=== PATIENT | male | born 1970 | race Caucasian/White ===

== ENCOUNTER 2021-03-15 16:47 | Inpatient (IN) | payer OTHER, SELFPAY ==
[2021-03-15] VITALS (51 sets, daily range): BP systolic 105–141; BP diastolic 57–76; PULSE 67–97; RESP 17–34; TEMP 36.9–37.9; O2SAT 78–100; BMI 34.5; BMI 32.1
--- NOTE | 2021-03-15 17:09 | XRR_ITS ---
PROCEDURE INFORMATION: Exam: XR Chest Exam date and time: 03/15/2021 5:09 PM Age: 50 years old Clinical indication: Cough and shortness of breath; Additional info: Covid pna TECHNIQUE: Imaging protocol: XR of the chest. Views: 1 view. COMPARISON: No relevant prior studies available. FINDINGS: Lungs: Peripheral ill-defined consolidations noted within the mid and lower lungs. Pleural spaces: Unremarkable. No pleural effusion. No pneumothorax. Heart/Mediastinum: Top-normal heart size. Bones/joints: Unremarkable. XR/XR chest 1V portable [id number] IMPRESSION: Peripheral ill-defined consolidations noted within the mid and lower lungs. Radiation Dose CTDIVOL = (mGy): DLP = (mGy-cm)
--- NOTE | 2021-03-15 17:12 | ED_ITS ---
HPI - General Adult General: Chief complaint: COVID symptoms Stated complaint: LOW 02 (60'S, 70'S), FEVER Time Seen by Provider: 03/15/21 17:09 History of Present Illness: HPI narrative: CC: Shortness of breath, fever and generalized weakness HPI: This is a [50] yo patient w/ no PMH BIBA for moderate respiratory distress at home x 5days. CoVID+ 4 days ago progressively worsening symptoms. Denies chest pain, N/V, diaphoresis, exertional shortness of breath, GI or other complaints. Denies any recent surgery/immobilization/travel, or hematemesis or hx of VTE in the past. En route, rescue placed on 15L satting at 78%. Onset: 4 days ago Duration: ongoing for the last 4 days Location: home Severity: moderate/severe Review of Systems Narrative: Constitutional: +subjective fever, +generalized weakness HEENT: No vision changes CV: No chest pain, no palpitations PULM: +cough, +dyspnea. GI: No abdominal pain, no N/V/D. : No dysuria MSKEL: No muscle pain SKIN: No new rashes, no lesions. NEURO: No headache, no focal weakness. HEME: No visible bruises PSYCH: Normal mood PFSH ED PFSH: Medical History (Updated 03/15/21 @ 18:10 by Jim Mckeon MD) HTN (hypertension) Surgical History (Updated 03/16/21 @ 14:05 by Jim Mckeon MD) No significant past surgical history Family History (Updated 03/16/21 @ 14:05 by Jim Mckeon MD) Other CAD (coronary artery disease) Denies family history of Cancer Social History (Updated 03/16/21 @ 14:06 by Jim Mckeon MD) Smoking and tobacco status: former smoker Alcohol intake: never Substance/Drug Use: never Caregiver/support person: Yes Lives independently: Yes Household members: family Housing: House Current occupational status: employed Current gender identity: Male Physical Exam Narrative: EXAM NARRATIVE: Head: Atraumatic Eyes: PERRL, conjunctiva without injection ENT: Dry membrane moist NECK: Supple without lymphadenopathy LUNGS: +Coarse lung sounds, +rhonchi and crackles throughout the lung qureshi CV: RRR ABDOMEN: Soft, nontender in all quadrants, no guarding or rebound tenderness EXTREMITY: Normal ROM SKIN: No rash or erythema NEURO: Awake and alert. No focal motor deficits. PSYCH: Normal mood and affect. Course Vital Signs: Vital signs: Vital Signs Temperature 98.5 F 03/16/21 18:30 Pulse Rate 73 03/17/21 09:00 Respiratory Rate 19 H 03/17/21 09:00 Blood Pressure 126/84 03/17/21 09:00 Pulse Oximetry 87 L 03/17/21 09:00 MDM - General Adult MDM Narrative: Medical decision making narrative: [50]yo patient w/ hx covid dx 4 days prior BIBA for respiratory distress. On arrival patient is satting at 78% with increased work of breathing, coarse breath sounds in lungs. Speaking full sentence. Currently full code. Based on history, exam and findings, presentation most consistent with moderate/severe covid PNA requiring increasing oxygen support. No suspicion for PNA, ACS, tamponade, CHF, aortic dissection. EKG: No signs of STEMI and no evidence of Brugada?s sign, delta wave, epsilon wave, significantly prolonged QTc, or malignant arrhythmia as source of exacerbation. Workup today: ECG, CBC, BMP, Troponin, BNP, CXR, COVID labs, ABG, lactic acid, blood culture Intervention: Tylenol 1gram, PO challenge, serial reassessment, oxygen, remdesivir, decadron [5:20pm] On reassessment, the patient continues to be in moderate respiratory distress. HDS, AAOx3 and mentating without issues. The patient is now more comfortable on high flow compared to prior without any signs of increasing fatigue. At this point, a decision was made to admit patient for close observati on. Patient agrees with plan. Disposition: Admission for serial observation Lab Data: Labs: Lab Results 03/15/21 03/15/21 03/15/21 17:18 17:18 17:18 WBC 12.6 10^3/uL H 10 ^3/uL (4.0-10.0) RBC 3.80 10^6/uL L 10 ^6/uL (4.1-5.3) Hgb 11.5 g/dL L g/dL (11.7-16.6) Hct 33.2 % L % (42.0-52.0) MCV 87.4 fl fl (80-94) MCH 30.3 pg pg (28.0-34.0) MCHC 34.6 g/dL g/dL (30.0-36.0) RDW 12.3 % % (12.1-15.1) Plt Count 342 10^3/cmm 10^3 /cmm (130-400) MPV 8.9 fL fL (7.4-10.4) Neut % (Auto) 91.6 % % Lymph % (Auto) 4.5 % % [place] % (Auto) 2.9 % % Eos % (Auto) 0.0 % % Baso % (Auto) 0.2 % % Neut # (Auto) 11.52 10^3/uL H 1 0^3/uL (1.8-7.7) Lymph # (Auto) 0.6 10^3/uL L 10^ 3/uL (0.8-4.8) [place] # (Auto) 0.4 10^3/uL 10^3/ uL (0.2-0.9) Eos # (Auto) 0.0 10^3/uL 10^3/ uL (0.0-0.8) Baso # (Auto) 0.0 10^3/uL 10^3/ uL (0.0-0.1) Nucleated RBC % (a uto) 0 % % Nucleated RBCs # 0.0 /100WBC /100W BC PT 16.20 SECONDS H S ECONDS (12.1-14.9) INR 1.26 H (0.8-1.2) APTT 43.4 SECONDS H SE CONDS (23.9-36.7) Fibrinogen 849 mg/dL H mg/dL (174-498) D-Dimer 1.62 ug/mIFEU H u g/mIFEU (0-0.59) Specimen Type Sample Site ABG pH ABG pCO2 ABG pO2 ABG HCO3 ABG Base Excess Rico Test Hematocrit O2 Delivery Device O2 Liters/Min FiO2 [employer] ID Sodium 134 mmol/L L mmol /L (136-145) Potassium 3.4 mmol/L L mmol /L (3.5-5.1) Chloride 96 mmol/L L mmol/ L (98-107) Carbon Dioxide 22 mmol/L mmol/L (22-29) Anion Gap 19.4 H (5-19) BUN 13 mg/dL mg/dL (6-20) Creatinine 0.9 mg/dL mg/dL (0.7-1.2) GFR Calculation 90.1 mL/min mL/mi n (90-130) Glucose 141 mg/dL H mg/dL (65-115) Calculated Osmolal ity 280 mOsm/kg L mOs m/kg (285-295) Lactic Acid Calcium 8.3 mg/dL L mg/dL (8.5-10.5) Magnesium 2.0 mg/dL mg/dL (1.7-2.3) Ferritin 1499 ng/mL H ng/m L (30-400) Total Bilirubin 0.8 mg/dL mg/dL (0.15-1.2) AST 45 U/L H U/L (0-40) ALT 32 U/L U/L (0-41) Alkaline Phosphata se 105 IU/L IU/L (40-130) Lactate Dehydrogen ase 683 U/L H U/L (135-225) C-Reactive Protein 345.4 mg/L H mg/L (0.0-4.9) NT-Pro-B Natriuret Pep 538 pg/mL H pg/mL (0-125) Total Protein 6.6 g/dL g/dL (6.6-8.7) Albumin 3.8 g/dL g/dL (3.5-5.2) Globulin 2.8 g/dL g/dL (1.3-4.6) Procalcitonin 0.56 ng/mL H ng/m L (0-0.5) 03/15/21 03/15/21 17:18 17:26 WBC RBC Hgb Hct MCV MCH MCHC RDW Plt Count MPV Neut % (Auto) Lymph % (Auto) [place] % (Auto) Eos % (Auto) Baso % (Auto) Neut # (Auto) Lymph # (Auto) [place] # (Auto) Eos # (Auto) Baso # (Auto) Nucleated RBC % (a uto) Nucleated RBCs # PT INR APTT Fibrinogen D-Dimer Specimen Type Arterial Sample Site Radial, left ABG pH 7.51 H (7.35-7.45) ABG pCO2 27.9 mmHg L mmHg (35-45) ABG pO2 51.7 mmHg L mmHg (80.0-100.0) ABG HCO3 22.3 mmol/L mmol/ L (22-26) ABG Base Excess 0.1 mmol/L mmol/L (-2.0-2.0) Rico Test Pos Hematocrit 33.7 % L % (42-52) O2 Delivery Device Hag O2 Liters/Min 35.0 % % FiO2 60.0 % % [employer] ID Cak Sodium Potassium Chloride Carbon Dioxide Anion Gap BUN Creatinine GFR Calculation Glucose Calculated Osmolal ity Lactic Acid 1.4 mmol/L mmol/L (0.5-2.2) Calcium Magnesium Ferritin Total Bilirubin AST ALT Alkaline Phosphata se Lactate Dehydrogen ase C-Reactive Protein NT-Pro-B Natriuret Pep Total Protein Albumin Globulin Procalcitonin Imaging Data^: Other Imaging: Radiologist's impression: [address], [place] [address]FSre ReportSigned Patient: Jamal Díaz #: [id number]: [id number]#:[id number]/Sex: 50 / MADM Date: 03/15/21Loc: ERRoom/Bed:Attending Dr: Ordering Provider/Ordering MD: Navneet Palmer MD Date of Service: 03/15/21 Procedure(s): XR chest 1V portable [id number] Accession Number(s): [id number] Report Number: [id number] PROCEDURE INFORMATION: Exam: XR Chest Exam date and time: 03/15/2021 5:09 PM Age: 50 years old Clinical indication: Cough and shortness of breath; Additional info: Covid pna TECHNIQUE: Imaging protocol: XR of the chest. Views: 1 view. COMPARISON: No relevant prior studies available. FINDINGS: Lungs: Peripheral ill-defined consolidations noted within the mid and lower lungs. Pleural spaces: Unremarkable. No pleural effusion. No pneumothorax. Heart/Mediastinum: Top-normal heart size. Bones/joints: Unremarkable. XR/XR chest 1V portable [id number] IMPRESSION: Peripheral ill-defined consolidations noted within the mid and lower lungs. Radiation Dose CTDIVOL = (mGy): DLP = (mGy-cm) Dictated By:James Myers DOSigned By:James Myers DOSigned Date/Time:03/15/21 1805DD/ 1709 Discharge Plan Discharge Patient Disposition: Admitted As Inpatient Admit Provider: Jim Mckeon Clinical Impression: Pneumonia due to 2019-nCoV, Hypoxemia Condition: Stable Coding Level of Care Code ED Mass Communications Instructor for [facility]
[2021-03-15 17:27] LABS: Basophils % 0.2 %; Hematocrit 33.2 % (42.0-52.0); Hemoglobin 11.5 g/dL (11.7-16.6); Lymphocytes # 0.6 10^3/uL (0.8-4.8); Lymphocytes % 4.5 %; Mean Corpuscular HGB Conc 34.6 g/dL (30.0-36.0); Mean Corpuscular Hemoglobin 30.3 pg (28.0-34.0); Mean Corpuscular Volume 87.4 fl (80-94); Mean Platelet Volume 8.9 fL (7.4-10.4); Monocytes # 0.4 10^3/uL (0.2-0.9); Monocytes % 2.9 %; Neutrophils # 11.52 10^3/uL (1.8-7.7); Neutrophils % 91.6 %; Nucleated Red Blood Cells % 0 %; Platelet Count 342 10^3/cmm (130-400); Red Cell Distribution Width 12.3 % (12.1-15.1); White Blood Count 12.6 10^3/uL (4.0-10.0)
[2021-03-15] MEDS: acetaminophen 500 mg Tablet 1000 MG PO (17:29)
[2021-03-15] MEDS: dexamethasone 4 mg/mL INJ 6 MG IVP (17:29)
[2021-03-15] MEDS: sodium chloride 0.9% 1,000 ML 999 ML IV (17:29)
--- NOTE | 2021-03-15 17:31 | PC.PHAR ---
pt states he takes care of his own medications-pt states he took his last dose of the z pac today
[2021-03-15 17:37] LABS: ABG PCO2 27.9 mmHg (35-45); ABG PH Result 7.51 (7.35-7.45); Arterial Blood Gas Hematocrit 33.7 % (42-52); Base Excess ABG 0.1 mmol/L (-2.0-2.0); Blood Gas Allen Test Pos; Blood Gas Operator Identificat CAK; Blood Gas Sample Site Radial, left; Blood Gas Sample Type Arterial; HCO3 ABG 22.3 mmol/L (22-26); Oxygen Device HAG; PO2 ABG 51.7 mmHg (80.0-100.0)
[2021-03-15 17:41] LABS: INR 1.26 (0.8-1.2)
[2021-03-15 17:42] LABS: Lactic Sepsis W/Reflex 1.4 mmol/L (0.5-2.2); Partial Thromboplastin Time 43.4 SECONDS (23.9-36.7)
[2021-03-15 17:47] LABS: D Dimer 1.62 ug/mIFEU (0-0.59); Fibrinogen 849 mg/dL (174-498)
--- NOTE | 2021-03-15 18:01 | P.HP_ITS ---
Providers/Chief Complaint Chief Complaint: LOW 02 (60'S, 70'S), FEVER History of Present Illness Jamal Díaz is a 50 year old male with past medical history of hypertension, and vaccinated for COVID-19, tested positive for COVID-19 on March 11 at outpatient clinic presented to the ER today with worsening shortness of breath over last 1 week more so since March 13. In the ER he was found to have saturation down to high 70s requiring high oxygen supplementation. Blood work in the ER concerning for white count 12.6, hemoglobin of 11.5, D- dimer 1.6, ABG showing a pH of 7.5, PCO2 of 28, PO2 of 51 on 60% high, sodium 134, potassium of 3.4, creatinine of 0.9, ferritin of 1499, CRP of 345 with chest x-ray as below. Review of Systems General: Reports: 10 or more systems reviewed and unremarkable except in HPI and below Const: Denies: fever(s), chills, body aches, change in appetite, change in weight, malaise, night sweats, diaphoresis, change in sleep pattern, daytime sleepiness or snoring Eyes: Denies: change in vision, blurry vision, photophobia, eye discomfort or eye discharge ENMT: Denies: throat pain, enlarged tonsils, hoarseness, mouth pain, oral sores, dry mouth, tinnitus, nasal congestion or post nasal drip Card: Denies: chest pain, palpitations, irregular heart rhythm, edema, swelling of feet/ankles, lightheadedness, syncope, pre-syncope, dyspnea on exertion, orthopnea, leg pain with exertion or acrocyanosis Resp: Denies: dyspnea, productive cough, non-productive cough, wheezing, stridor, pain on inspiration, change in phlegm color, hemoptysis or chest congestion GI: Denies: abdominal pain, nausea, vomiting, hematemesis, coffee ground emesis, dysphagia, heartburn, diarrhea, constipation, bloating, GI cramping, change in bowel habits, pain on defecation, hematochezia or melena : Denies: flank pain, difficulty urinating, dysuria, urinary frequency, urinary urgency, urinary hesitancy, urinary dribbling, difficulty starting urination, change in urine stream, nocturia or hematuria Musc: Denies: neck pain, back pain, extremity pain, joint pain, joint swelling, joint redness, joint stiffness or limited range of motion Neuro: Denies: headache(s), numbness in extremities, weakness in extremities, sensory changes, lack of coordination, difficulty walking, frequent falls, dizziness, vertigo, confusion, Slurred speech present, difficulty communicating thoughts or seizure-like activity Psych: Denies: anxiety, depression, mood swings, panic attacks, hopelessness or irritability Endo: Denies: polyuria, polydipsia, tired all the time, cold intolerance, excessive sweating, flushing or heat intolerance Gregg/Lymph: Denies: easy bruising or easy bleeding All/Imm: Denies: tongue swelling, facial swelling or acute wheezing Medications/Allergies Home Medications Medication Instructions Recorded Confirmed Last Taken Type amlodipine 5 mg PO QAM 03/15/21 03/15/21 03/15/21 History azithromycin See Rx Instructions .ROUTE .COMPLEX 03/15/21 03/15/21 03/15/21 Hist ory LAST DOSE TAKEN TODA diphenhydramine-acetaminophen 2 tab PO BEDTIME PRN 03/15/21 03/15/21 03/14/21 History [Tylenol PM Extra Strength] hydroxyzine HCl 50 mg PO BID PRN 03/15/21 03/15/21 Unknown History ibuprofen 400 - 600 mg PO Q6H PRN 03/15/21 03/15/21 03/15/21 12:00 History Allergies Allergy/AdvReac Type Severity Reaction Status Date / Time Penicillins Allergy Intermediate ALGY-Anaphy Verified 03/15/21 17:30 laxis PFSH Acute PFSH: Medical History (Updated 03/15/21 @ 18:10 by Jim Mckeon MD) HTN (hypertension) Surgical History (Updated 03/16/21 @ 14:05 by Jim Mckeon MD) No significant past surgical history Family History (Updated 03/16/21 @ 14:05 by Jim Mckeon MD) Other CAD (coronary artery disease) Denies family history of Cancer Social History (Updated 03/16/21 @ 14:06 by Jim Mckeon MD) Smoking and tobacco status: former smoker Alcohol intake: never Substance/Drug Use: never Caregiver/support person: Yes Lives independently: Yes Household members: family Housing: House Current occupational status: employed Current gender identity: Male Vitals/I&O/Wt Last Vital Signs Temp 100.0 F H 03/15/21 17:44 Pulse 96 03/15/21 17:44 Resp 28 H 03/15/21 17:44 BP 123/71 03/15/21 17:44 Pulse Ox 90 03/15/21 17:44 Weight last 48 hrs Weight 109.316 kg Physical Exam Narrative: EXAM NARRATIVE: General: No acute distress, AO x3 HEENT: PERRLA, pupils bilaterally equal and reactive Chest: Normal vesicular breath sounds, no added sounds, equal good air entry bilaterally CVS: S1-S2 regular, no murmurs, no tachycardia, no gallops, no rubs Abdomen: Soft, nontender, no organomegaly, bowel sounds present Neuro: No focal deficits, no facial deformity, AO x3, power 5/5 in all limbs Data : 03/16/21 04:20 03/16/21 04:20 A&P Assessment and plan (1) ARDS (adult respiratory distress syndrome): Status: Acute (2) Pneumonia due to 2019-nCoV: Status: Acute (3) HTN (hypertension): Status: Acute Additional A&P Information Hypoxia secondary to COVID-19 pneumonia: Severe disease. Oxygen supplementation keeping saturation over 88%. Dexamethasone 6 mg daily. Remdesivir to finish a 5-day course. Vitamin C, zinc. Advair, Spiriva. Pulmonary toilet with incentive spirometry flutter valve. Point to semiprone when possible. We will monitor inflammatory markers including ferritin, ESR, CRP, D-dimer, fibrinogen. If getting elevated will dose Actemra though high suspicion of bacterial infection for now. Patient was made aware of the same and he has given verbal consent. D-dimer elevated. Check CTA. For now we will start patient on full dose anticoagulation given history of CVA, patient requiring high oxygen supplementation. Will monitor for anemia or blood loss. Check sputum culture, procalcitonin, urine Legionella, bacterial antigen, blood culture. As patient is requiring high oxygen supplementation for now start on broad-spectrum antibiotics with vancomycin and imipenem. Will de-escalate as per culture results. Given hypoxia will try to keep patient as negative as possible. Patient clinically dehydrated for now. Check echocardiogram. Strict input output charting, daily weights. Admit to ICU. Mechanical soft diet. Protonix OPD prophylaxis. Full dose Lovenox to help with DVT prophylaxis as well. Attestations Medical Necessity Statement*: More than 2 midnights for management of ARDS secondary COVID-19 pneumonia Critical Care Time: The high probability of a clinically significant, sudden or life threatening deterioration of the patient's [pulmonary] system(s) required my full and direct attention, intervention and personal management. The critical care time is as shown. This time is in addition to time spent performing any reported procedures but includes the following: [x] Data and vital sign review and interpretation [x] Patient assessment, examination and intervention [x] Documentation [x] Medication orders and management Coding Level of Care Code Acute Auto Transmission Technician for [facility] Fwd Diagnoses ARDS (adult respiratory distress syndrome) J80 Pneumonia due to 2019-nCoV U07.1; J12.82 HTN (hypertension) I10
[2021-03-15 18:23] LABS: Alanine Aminotransferase 32 U/L (0-41); Albumin Level 3.8 g/dL (3.5-5.2); Alkaline Phosphatase 105 IU/L (40-130); Anion Gap 19.4 (5-19); Aspartate Amino Transferase 45 U/L (0-40); Blood Urea Nitrogen 13 mg/dL (6-20); C Reactive Protein 345.4 mg/L (0.0-4.9); Calcium 8.3 mg/dL (8.5-10.5); Carbon Dioxide 22 mmol/L (22-29); Chloride 96 mmol/L (98-107); Globulin 2.8 g/dL (1.3-4.6); Glomerular Filtration Rate 90.1 mL/min (90-130); Glucose 141 mg/dL (65-115); Lactate Dehydrogenase 683 U/L (135-225); Osmolality Calculated 280 mOsm/kg (285-295); Potassium 3.4 mmol/L (3.5-5.1); Sodium 134 mmol/L (136-145); Total Bilirubin 0.8 mg/dL (0.15-1.2); Total Protein 6.6 g/dL (6.6-8.7)
--- NOTE | 2021-03-15 18:25 | CTR_ITS ---
PROCEDURE INFORMATION: Exam: CTA Chest With Contrast Exam date and time: 03/15/2021 6:25 PM Age: 50 years old Clinical indication: Shortness of breath; Patient HX: Covid +; Additional info: Eval pe TECHNIQUE: Imaging protocol: Computed tomographic angiography of the chest with contrast. 3D rendering (Not supervised by radiologist): MIP and/or 3D reconstructed images were created by the technologist. Radiation optimization: All CT scans at this facility use at least one of these dose optimization techniques: automated exposure control; mA and/or kV adjustment per patient size (includes targeted exams where dose is matched to clinical indication); or iterative reconstruction. Contrast material: OMNI 350; Contrast volume: 82 ml; Contrast route: INTRAVENOUS (IV); COMPARISON: CR (CHEST, ) 03/15/2021 5:28 PM RADIATION DOSE METRICS: Total DLP (mGy-cm): 615.51 FINDINGS: Pulmonary arteries: Normal. No pulmonary emboli. Aorta: Unremarkable. No aortic aneurysm. No aortic dissection. Lungs: Patulous ground-glass opacities noted throughout both lungs. No masses. Pleural spaces: Unremarkable. No pneumothorax. No pleural effusion. Heart: Unremarkable. No cardiomegaly. No pericardial effusion. Lymph nodes: Unremarkable. No enlarged lymph nodes. Bones/joints: Unremarkable. No acute fracture. Soft tissues: Unremarkable. CT/CT angio chest PE protcl [id number] IMPRESSION: 1. Negative for pulmonary embolism. 2. Patulous ground-glass opacities noted throughout both lungs consistent with COVID pneumonia. Radiation Dose CTDIVOL = (mGy): DLP = 615.51 (mGy-cm)
[2021-03-15 18:37] LABS: Ferritin 1499 ng/mL (30-400)
[2021-03-15 18:39] LABS: NT Pro B Type Natriuretic Pept 538 pg/mL (0-125); Procalcitonin 0.56 ng/mL (0-0.5)
[2021-03-15] MEDS: iohexol 350 mg/mL 100 mL Btl IV (18:45)
[2021-03-15] MEDS: remdesivir 200 MG in sodium chloride 0.9% (100 ml) 60 ML 100 MG IV (19:13)
[2021-03-15] MEDS: famotidine 20 mg/2 mL INJ IVP (19:15)
[2021-03-15 19:43] LABS: Troponin T (5th) Once 16 ng/L (0-15)
[2021-03-15 20:07] LABS: Add Urine Microscopic? YES; Bilirubin Urine Neg (Negative); Blood Urine 3+ (Negative); Glucose Urine UA Norm (Normal); Ketones Urine Negative (Negative); Leukocyte Esterase Urine Negative (Negative); Nitrate Urine Negative (Negative); Protein Urine 3+ (Negative); Urine Appearance Clear (CLEAR); Urine Color Yellow (Yellow); Urobilinogen Urine Norm (Negative); pH Urine 5 (5-7)
[2021-03-15 20:08] LABS: Add Urine Culture? No; Amorphous Sediment Urine 1+ /hpf; Bacteria Urine TRACE /hpf; Squamous Epithelial Cell Urine 0-4 /hpf (0-5); WBC Urine 0-4 /hpf (0-5)
[2021-03-15 20:23] LABS: SARS Covid-2 Antigen Negative (Negative)
[2021-03-15 20:49] LABS: Iron 14 ug/dL (59-158); Percent Saturation 8.5 % (20-50); Thyroid Stimulating Hormone 0.86 uIU/mL (0.27-4.20); Total Iron Binding Capacity 164 mcg/dl; Unsaturated Iron Binding 150 ug/dL (112-347)
[2021-03-15 21:20] LABS: Influenza A by IFA Negative (Negative); Influenza B by IFA Negative (Negative)
[2021-03-15] MEDS: ascorbic acid 500 mg Tablet 1000 MG PO (21:23)
[2021-03-15] MEDS: vancomycin 1,500 MG/300 ML PIGGYBACK 200 MG IV (21:23)
[2021-03-15] MEDS: benzonatate 100 mg Capsule PO (21:23)
[2021-03-15] MEDS: enoxaparin 120 mg/0.8 mL Syringe 110 MG SUBCUT (21:23)
[2021-03-15] MEDS: ipratropium-albuterol 3 mL Neb INHALATION (23:31)
[2021-03-16] VITALS (93 sets, daily range): BP systolic 110–147; BP diastolic 54–92; PULSE 74–98; RESP 15–45; TEMP 36.9; O2SAT 81–99
[2021-03-16] MEDS: ipratropium-albuterol 3 mL Neb INHALATION ×6 (03:15→23:59)
[2021-03-16 03:29] LABS: ABG PCO2 30.7 mmHg (35-45); ABG PH Result 7.46 (7.35-7.45); Arterial Blood Gas Hematocrit 37.2 % (42-52); Base Excess ABG -1.5 mmol/L (-2.0-2.0); Blood Gas Allen Test Pos; Blood Gas Sample Site Radial, left; Blood Gas Sample Type Arterial; HCO3 ABG 21.6 mmol/L (22-26); Oxygen Device NC; PO2 ABG 55.6 mmHg (80.0-100.0)
[2021-03-16] MEDS: vancomycin 1,500 MG/300 ML PIGGYBACK 200 MG IV ×3 (04:37→19:54)
[2021-03-16 04:43] LABS: Basophils % 0.1 %; Hemoglobin 11.1 g/dL (11.7-16.6); Lymphocytes # 0.4 10^3/uL (0.8-4.8); Lymphocytes % 3.3 %; Mean Corpuscular HGB Conc 33.6 g/dL (30.0-36.0); Mean Corpuscular Hemoglobin 29.8 pg (28.0-34.0); Mean Corpuscular Volume 88.5 fl (80-94); Monocytes # 0.4 10^3/uL (0.2-0.9); Neutrophils # 11.18 10^3/uL (1.8-7.7); Neutrophils % 92.6 %; Nucleated Red Blood Cells % 0 %; Platelet Count 370 10^3/cmm (130-400); Red Blood Count 3.73 10^6/uL (4.1-5.3); Red Cell Distribution Width 12.6 % (12.1-15.1); White Blood Count 12.1 10^3/uL (4.0-10.0)
[2021-03-16 05:12] LABS: D Dimer 1.73 ug/mIFEU (0-0.59)
[2021-03-16 05:25] LABS: Estmated Average Glucose 131; Hemoglobin A1C 6.2 % (4.0-6.0)
[2021-03-16 05:27] LABS: Chol HDL Ratio 3.43 mg/dL (1.0-5.00); Cholesterol 120 mg/dL (0-200); HDL Cholesterol 35 mg/dL (60-100); LDL Cholesterol Calculated 61 mg/dL (50-129); NT Pro B Type Natriuretic Pept 710 pg/mL (0-125); Triglycerides 118 mg/dL (0-150); VLDL Cholestrol Calculation 24 mg/dL (0-30)
[2021-03-16 05:31] LABS: Creatine Phosphokinase 325 U/L (39-308)
[2021-03-16 05:39] LABS: C Reactive Protein 339.3 mg/L (0.0-4.9)
[2021-03-16] MEDS: famotidine 20 mg/2 mL INJ IVP ×2 (05:39→18:14)
[2021-03-16 05:51] LABS: Alanine Aminotransferase 34 U/L (0-41); Albumin Level 3.4 g/dL (3.5-5.2); Alkaline Phosphatase 103 IU/L (40-130); Anion Gap 19.4 (5-19); Aspartate Amino Transferase 43 U/L (0-40); Blood Urea Nitrogen 14 mg/dL (6-20); Calcium 8.7 mg/dL (8.5-10.5); Carbon Dioxide 21 mmol/L (22-29); Chloride 101 mmol/L (98-107); Globulin 3.8 g/dL (1.3-4.6); Glomerular Filtration Rate 90.1 mL/min (90-130); Glucose 206 mg/dL (65-115); Osmolality Calculated 292 mOsm/kg (285-295); Potassium 3.4 mmol/L (3.5-5.1); Sodium 138 mmol/L (136-145); Total Bilirubin 0.5 mg/dL (0.15-1.2); Total Protein 7.2 g/dL (6.6-8.7)
[2021-03-16 05:54] LABS: Ferritin 1612 ng/mL (30-400)
--- NOTE | 2021-03-16 06:00 | XRR_ITS ---
PROCEDURE INFORMATION: Exam: XR Chest Exam date and time: 03/16/2021 6:00 AM Age: 50 years old Clinical indication: Dyspnea; Additional info: Covid TECHNIQUE: Imaging protocol: XR of the chest. Views: 1 view. COMPARISON: CR (CHEST, ) 03/15/2021 5:28 PM FINDINGS: Lungs: Moderate hazy opacities throughout both lungs. Since the prior study, these have become more diffuse but are overall decreased. Appearance is consistent with viral pneumonia. Pulmonary edema could be contributing. Pleural spaces: No visible pneumothorax or pleural effusion. Heart/Mediastinum: Heart size within normal limits. Bones/joints: No emergent findings identified. XR/XR chest 1V portable [id number] IMPRESSION: 1. Moderate hazy opacities throughout both lungs. Since the prior study, these have become more diffuse but are overall decreased. Appearance is consistent with viral pneumonia. Pulmonary edema could be contributing. Radiation Dose CTDIVOL = (mGy): DLP = (mGy-cm)
[2021-03-16] MEDS: potassium chloride ER 20 mEq Tablet 40 MEQ PO (08:07)
[2021-03-16] MEDS: FUROsemide 10 mg/mL SDV 4mL 40 MG IVP (08:07)
[2021-03-16] MEDS: ferrous gluconate 324 mg Tablet PO ×2 (08:07→18:14)
[2021-03-16] MEDS: zinc gluconate 50 mg Tablet PO (08:07)
[2021-03-16] MEDS: ascorbic acid 500 mg Tablet 1000 MG PO (08:07)
[2021-03-16] MEDS: benzonatate 100 mg Capsule PO ×3 (08:07→20:27)
[2021-03-16] MEDS: budesonide 0.5 mg/2 mL Neb INHALATION ×2 (08:14→20:30)
[2021-03-16] MEDS: apixaban 5 mg Tablet PO ×2 (09:40→20:28)
[2021-03-16] MEDS: ALPRAZolam 0.5 mg Tablet PO ×2 (10:24→20:27)
[2021-03-16 11:17] LABS: Glucose Point of Care 180 mg/dL (70-110)
[2021-03-16] MEDS: insulin lispro 100 unit/1 mL SUBCUT ×3 (11:42→20:28)
--- NOTE | 2021-03-16 14:07 | P.PN_ITS ---
Subjective Subjective: Interval history: Overnight patient required 50 L 100 % oxygen supplementation to maintain saturation at 90. Today morning decreased to 35 L 90% to make patient more comfortable and saturation improved to 91. On examination patient looking more comfortable though still tachypneic. Denies any nausea vomiting, headache. States he is feeling tired and has not slept in over a week. Denies chest pain. Has remained hemodynamically stable and afebrile. We discussed in detail for need to do proning to semiprone him when possible along with I-S and Acapella every 2 hours. Patient verbalized understanding and is motivated to the same. Vitals/I&O/Wt Last Vital Signs Temp 98.4 F 03/15/21 23:45 Pulse 75 03/16/21 13:00 Resp 26 H 03/16/21 13:00 BP 130/62 03/16/21 13:00 Pulse Ox 95 03/16/21 13:00 03/15/21 03/16/21 03/16/21 22:59 06:59 14:59 Intake Total 500 / 500 700 / 700 Output Total 1675 / 1675 1425 / 1425 Balance -1175 / -1175 -725 / -725 Weight last 48 hrs Weight 101.605 kg Weight 109.316 kg Physical Exam Narrative: EXAM NARRATIVE: General: No acute distress, AO x3 HEENT: PERRLA, pupils bilaterally equal and reactive Chest: Bilateral extensive bronchial breath sounds, coarse crackles present all over the lung qureshi, equal good air entry bilaterally CVS: S1-S2 regular, no murmurs, no tachycardia, no gallops, no rubs Abdomen: Soft, nontender, no organomegaly, bowel sounds present Neuro: No focal deficits, no facial deformity, AO x3, power 5/5 in all limbs Data : 03/16/21 04:20 03/16/21 04:20 Micro: Microbiology 03/15/21 19:51 Legionella Urinary Antigen - Final Urethra 03/15/21 19:51 Bacterial Antigens - Final Urine Kidney 03/15/21 20:43 Blood Culture - Preliminary Blood SPECIMEN COLLECTED 03/15/21 17:18 Blood Culture - Preliminary Blood SPECIMEN COLLECTED A&P Assessment and plan (1) ARDS (adult respiratory distress syndrome): Status: Acute (2) Pneumonia due to 2019-nCoV: Status: Acute (3) HTN (hypertension): Status: Acute Additional A&P Information ARDS secondary to COVID-19 pneumonia: Severe disease. Oxygen supplementation keeping saturation over 88%. PF ratio 55 Dexamethasone 6 mg daily. Remdesivir to finish a 5-day course. Vitamin C, zinc. DuoNebs every 4 hour, budesonide twice daily Pulmonary toilet with incentive spirometry flutter valve. Proning to semiprone when possible. We will monitor inflammatory markers including ferritin, ESR, CRP, D-dimer, fibrinogen. If getting elevated will dose Actemra though high suspicion of bact erial infection for now. Patient was made aware of the same and he has given verbal consent. D-dimer elevated. CTA negative for pulmonary embolism. Switch from full dose Lovenox to Eliquis 5 mg twice daily given high oxygen supplementation. Most likely patient will need anticoagulation for 14 days on discharge. Will monitor for anemia or blood loss. Blood cultures so far negative, urine Legionella, bacterial antigen negative. Pro-Leon elevated. Sputum culture awaited. For now continue with vancomycin and imipenem. Will de-escalate as per culture results. Given hypoxia will try to keep patient as negative as possible. Check echocardiogram. Results awaited. Give IV Lasix 40 mg once. Replace potassium. Strict input output charting, daily weights. Hypertension: Goal of excellent less than 140/90 mmHg. Blood pressure stable for now. Hold off antihypertensives. Type 2 diabetes mellitus: New diagnosis. HbA1c 6.2. Start insulin sliding scale at low-dose protocol as patient will be on steroids as well. Will uptitrate insulin as per daily requirements. Admit to ICU. Mechanical soft carb consistent diet. Protonix OPD prophylaxis. Full dose Lovenox to help with DVT prophylaxis as well. Attestations Medical Necessity Statement*: For management of ARDS secondary COVID-19 pneumonia Critical Care Time: The high probability of a clinically significant, sudden or life threatening deterioration of the patient's [pulmonary] system(s) required my full and direct attention, intervention and personal management. The critical care time is as shown. This time is in addition to time spent performin g any reported procedures but includes the following: [x] Data and vital sign review and interpretation [x] Patient assessment, examination and intervention [x] Documentation [x] Medication orders and management Coding Level of Care Code Acute [employer] Weaver Cloth for [facility]dard Diagnoses ARDS (adult respiratory distress syndrome) J80 Pneumonia due to 2019-nCoV U07.1; J12.82 HTN (hypertension) I10
[2021-03-16 14:17] LABS: Coronavirus Test Green County Detected
--- NOTE | 2021-03-16 18:04 | USCV_ITS ---
Jamal Díaz Age: 50 Gender: M : 1970 Exam Date: 03/16/2021 06:47 Ordering Phys: Jim Mckeon MD Technologist: Exam Location: [facility] [place] Indication: COVID BP: 131 / 71 HR: 75 Rhythm: Sinus Technical Quality: Adequate MEASUREMENTS (Male / Female) Normal Values 2D ECHO LVOT Diameter 2.1 cm LV Ejection Fraction MOD 2C 49.1 % LV Ejection Fraction 2C AL 48.9 % LA Diameter 3.7 cm LA Width 4.0 cm LA Height 4.9 cm RA Width 4.3 cm RA Height 5.2 cm Aorta at Sinotubular Diameter 3.2 cm M-MODE LV Diastolic Diameter MM 5.6 cm 4.2 - 5.9 / 3.9 - 5.3 cm LV Systolic Diameter MM 4.4 cm LV Ejection Fraction MM Teich 43.5 % IVS Diastolic Thickness MM 1.2 cm 0.6 - 1.0 / 0.6 - 0.9 cm IVS Systolic Thickness MM 1.5 cm LVPW Diastolic Thickness MM 1.2 cm 0.6 - 1.0 / 0.6 - 0.9 cm LVPW Systolic Thickness MM 2.3 cm RV Diastolic Diameter MM 1.7 cm Aortic Annulus Diameter 4.0 cm LA Ao Ratio MM 1.0 MV E Point Septal Separation 2.6 cm DOPPLER AV Peak Velocity 141.0 cm/s LVOT Peak Velocity 121.0 cm/s AV Area Cont Eq vti 2.9 cm squared AV Area Cont Eq pk 2.9 cm squared MV Area PHT 5.0 cm squared Mitral E to A Ratio 1.4 MV E' Velocity 62.0 cm/s Mitral E to MV E' Ratio 9.3 Mitral E to LV E' Lateral Ratio 7.8 Mitral E to LV E' Septal Ratio 11.4 TR Peak Velocity 263.0 cm/s TR Peak Gradient 27.7 mmHg Right Atrial Pressure 4.0 mmHg Pulmonary Artery Systolic Pressu 31.7 mmHg FINDINGS Left Ventricle Normal left ventricular cavity size. Normal left ventricular systolic function. No regional wall motion abnormalities. Left ventricular ejection fraction is estimated at 55%. Normal diastolic function. Right Ventricle The right ventricle is normal in size and function. Right Atrium The right atrium is normal in size. Left Atrium The left atrium is normal in size. Mitral Valve Moderately thickened mitral valve. No mitral valve stenosis. Mild-moderate mitral valve regurgitation. Aortic Valve Aortic valve sclerosis without stenosis or regurgitation. Tricuspid Valve Mild tricuspid valve regurgitation. Pulmonic Valve Structurally normal pulmonic valve without significant stenosis. There is no pulmonic regurgitation. Pericardium Normal pericardium without effusion. Aorta Normal ascending aorta dimension. CONCLUSIONS 1-Normal left ventricular cavity size. Normal left ventricular systolic function. No regional wall motion abnormalities. Left ventricular ejection fraction is estimated at 55%. Normal diastolic function. 2-Moderately thickened mitral valve. No mitral valve stenosis. Mild-moderate mitral valve regurgitation. 3-There is no pericardial effusion. 4-Pulmonary artery systolic pressure is within normal limits. 5-Right atrial pressure is around 5 mm of mercury. 6-There are no prior echocardiogram studies to compare. Kerwin Taveras MD (Electronically Signed) Final Date: 16 March 2021 19:45 S
[2021-03-16 18:07] LABS: Glucose Point of Care 204 mg/dL (70-110)
[2021-03-16] MEDS: ascorbic acid 500 mg Tablet PO (18:14)
[2021-03-16] MEDS: dexamethasone 4 mg/mL INJ 6 MG IVP (18:14)
[2021-03-16] MEDS: remdesivir 100 MG in sodium chloride 0.9% (100 ml) 100 ML IV (18:15)
[2021-03-16] MEDS: morphine 4 mg/mL SDV 1 mL 2 MG IVP ×3 (19:10→23:52)
[2021-03-16 20:25] LABS: Glucose Point of Care 164 mg/dL (70-110)
[2021-03-16 21:16] LABS: Vancomycin Trough 11.3 ug/mL (10-15)
[2021-03-17] VITALS (39 sets, daily range): BP systolic 112–136; BP diastolic 58–90; PULSE 58–103; RESP 12–46; TEMP 36.7; O2SAT 83–99
[2021-03-17] MEDS: dexmedeTOMIDine 0.9 % NaCL 400 MCG/100 ML PREMIX 5.08 MCG IV (00:03)
[2021-03-17] MEDS: ondansetron 2 mg/ML SDV 2 mL 4 MG IVP (01:23)
[2021-03-17] MEDS: morphine 4 mg/mL SDV 1 mL 2 MG IVP ×2 (01:33→04:35)
[2021-03-17] MEDS: haloperidol inj 5 mg/mL INJ 1 mL 1 MG IV ×2 (01:34→01:41)
[2021-03-17] MEDS: LORazepam 2 mg/mL INJ 1 mL IVP (01:34)
--- NOTE | 2021-03-17 01:49 | PC.NURSE ---
Pt has been progressively declining in respiratory status. Dr Parker has been notified and multiple changes have been made via medicine (see MAR) and through RT measures. Pt is currently refusing bipap and is on HFNC. Pt was informed of his current code status being FULL CODE and what that entailed. Pt stated multiple times that he DID NOT want to be intubated. He DOES NOT want to be on a ventilator or have a breathing tube in his throat. Pt is alert and oriented X4. Dr Parker notified of pt's wish to be DNI. stated that pt is too young to be DNI, so we will wait to change code status until the time comes. Pt next of kinand only emergency contact is his brother, whom he lives with, and whom is currently in the ER for worsening covid symptoms, so he is unable to be contacted about the issue.
--- NOTE | 2021-03-17 02:16 | PC.NURSE ---
PRECEDEX DOSING Per Dr. Parker, pt is to be on 1 mcg/kg unless it causes bradycardia.
[2021-03-17 02:21] LABS: ABG PCO2 37.2 mmHg (35-45); ABG PH Result 7.38 (7.35-7.45); Alveolar-Arterial Oxygen Gradi 63.7 mmHg (5-10); Arterial Blood Gas Hematocrit 49.3 % (42-52); Base Excess ABG -2.5 mmol/L (-2.0-2.0); Blood Gas Allen Test Pos; Blood Gas Operator Identificat JB; Blood Gas Sample Site Radial, right; Blood Gas Sample Type Arterial; Carboxyhemoglobin 0.6 %THgb (0.4-20.1); HCO3 ABG 22.1 mmol/L (22-26); HGB O2 Sat 93.6 % (95-100); Ionized Calcium Level - ABG 1.2 mmol/L (1.1-1.4); Methemoglobin 0.1 % (0.4-1.5); Oxygen Device HAG; Oxygen Saturation ABG 94.2; PO2 ABG 70.6 mmHg (80.0-100.0); Potassium Level - ABG 3.5 mmol/L (3.5-5.0); Total Hemoglobin 16.1 g/dL (14-18)
--- NOTE | 2021-03-17 03:00 | XR_ITS ---
WS: [id number] Portable AP upright chest, 03/17/2021 Clinical Data: worsening breathing Comparison: Portable chest, 03/16/2021 Findings: The patchy bilateral pulmonary opacities have increased slightly compared to yesterday. The heart size is enlarged. Monitor leads are on the chest wall. XR/XR chest 1V portable [id number] Impression: Slight increase in bilateral pulmonary opacities.
[2021-03-17] MEDS: ipratropium-albuterol 3 mL Neb INHALATION ×5 (03:29→20:45)
[2021-03-17] MEDS: vancomycin 1,500 MG/300 ML PIGGYBACK 200 MG IV ×2 (03:56→13:24)
[2021-03-17] MEDS: dexmedeTOMIDine 0.9 % NaCL 400 MCG/100 ML PREMIX 25.4 MCG IV (04:40)
[2021-03-17 05:20] LABS: Basophils % 0.2 %; Hematocrit 31.7 % (42.0-52.0); Hemoglobin 10.7 g/dL (11.7-16.6); Lymphocytes # 0.6 10^3/uL (0.8-4.8); Lymphocytes % 3.9 %; Mean Corpuscular HGB Conc 33.8 g/dL (30.0-36.0); Mean Corpuscular Hemoglobin 30.3 pg (28.0-34.0); Mean Corpuscular Volume 89.8 fl (80-94); Mean Platelet Volume 9.3 fL (7.4-10.4); Monocytes # 0.6 10^3/uL (0.2-0.9); Monocytes % 3.9 %; Neutrophils # 12.66 10^3/uL (1.8-7.7); Nucleated Red Blood Cells % 0 %; Platelet Count 446 10^3/cmm (130-400); Red Blood Count 3.53 10^6/uL (4.1-5.3); Red Cell Distribution Width 13.1 % (12.1-15.1); White Blood Count 14.2 10^3/uL (4.0-10.0)
[2021-03-17 05:40] LABS: Alanine Aminotransferase 67 U/L (0-41); Albumin Level 3.3 g/dL (3.5-5.2); Alkaline Phosphatase 157 IU/L (40-130); Aspartate Amino Transferase 80 U/L (0-40); Chloride 105 mmol/L (98-107); Globulin 3.7 g/dL (1.3-4.6); Glucose 183 mg/dL (65-115); Potassium 4.2 mmol/L (3.5-5.1); Sodium 141 mmol/L (136-145)
[2021-03-17 05:44] LABS: D Dimer 1.86 ug/mIFEU (0-0.59)
[2021-03-17 06:00] LABS: C Reactive Protein 244.6 mg/L (0.0-4.9); Creatine Phosphokinase 272 U/L (39-308); NT Pro B Type Natriuretic Pept 397 pg/mL (0-125)
[2021-03-17 06:26] LABS: Ferritin 2752 ng/mL (30-400)
[2021-03-17 06:37] LABS: Anion Gap 23.2 (5-19); Blood Urea Nitrogen 17 mg/dL (6-20); Carbon Dioxide 17 mmol/L (22-29); Osmolality Calculated 298 mOsm/kg (285-295)
[2021-03-17 06:38] LABS: Calcium 8.4 mg/dL (8.5-10.5); Total Bilirubin 0.3 mg/dL (0.15-1.2)
[2021-03-17 07:02] LABS: Glomerular Filtration Rate 143.8 mL/min (90-130)
[2021-03-17] MEDS: FUROsemide 10 mg/mL SDV 4mL 40 MG IVP ×2 (07:44→16:19)
[2021-03-17] MEDS: famotidine 20 mg/2 mL INJ IVP ×2 (07:45→17:43)
[2021-03-17] MEDS: ferrous gluconate 324 mg Tablet PO (07:45)
[2021-03-17 08:00] LABS: Glucose Point of Care 167 mg/dL (70-110)
[2021-03-17 08:05] LABS: Procalcitonin 0.51 ng/mL (0-0.5)
[2021-03-17] MEDS: budesonide 0.5 mg/2 mL Neb INHALATION ×2 (08:33→20:45)
[2021-03-17] MEDS: fluoxetine 20 mg Capsule 40 MG PO (09:08)
[2021-03-17] MEDS: ascorbic acid 500 mg Tablet PO (09:08)
[2021-03-17] MEDS: insulin lispro 100 unit/1 mL SUBCUT ×2 (09:09→12:49)
[2021-03-17] MEDS: benzonatate 100 mg Capsule PO ×3 (09:09→21:08)
[2021-03-17] MEDS: zinc gluconate 50 mg Tablet PO (09:09)
[2021-03-17] MEDS: apixaban 5 mg Tablet PO (09:14)
--- NOTE | 2021-03-17 09:51 | PC.CHAP ---
Pastoral Care Encounter/Spiritual Assessment Type of Contact [] Declined document management specialist visit [] Patient/Family/Request visit [] Outpatient visit [] Follow-up visit [] Physician referral [] Code/Alert [x] Routine visit [] Staff referral [] Actively dying [x] Patient sleeping [] Family support [] [] Out of room [] Palliative care [] [] Receiving care in room [] Pre-surgical visit [] Trauma [] Long length of stay [x] ICU visit [x] Other: oxygen Relational/Emotional Strength [] Patient feels connected with others/family/visitors/staff [] Distress [] Loneliness/isolation [] Abandonment Spirituality of Patient [] Person of Jade [] Attends Faith of their Jade [] Believes in Prayer [] Reads Bible or Pentecostal materials [] There are Spiritual issues to be addressed Stunt Driver Interventions [x] Prayer [] Active listening [] Non-anxious presence [] Spiritual/emotional support [] Crisis/trauma care [] Spiritual counseling [] Bereavement support [] Provided bereavement packet [] Provided Bible/devotional materials [] Provided toy/stuffed animal, coloring book to patient or family member [] Provided Communion [] Anointing/[place] [] Salvation [x] Completed spiritual assessment [] Other: Impact on Illness or Injury [] Angry [] Fearful [] Anxious [] Often cries [] Exhaustion [] Unable to work [] Unable to attend latter-day [] Unable to walk/stand [] Unable to read [] Unable to drive [] Unable to eat/drink [] Unable to sleep [] Unable to be with family [] Patient intubated [] Other: Summary Time spent with patient
[2021-03-17] MEDS: tocilizumab 800 MG in sodium chloride 0.9% (100 ml) 100 ML 100 MG IV (10:25)
[2021-03-17 12:17] LABS: Glucose Point of Care 216 mg/dL (70-110)
--- NOTE | 2021-03-17 15:35 | PM.CONSULT ---
Providers/Reason For Consult Consulting Physician/Specialty*: Pulmonary critical care medicine Reason for Consult*: Severe COVID-19 Attending Physician: Jim Mckeon MD History of Present Illness History of Present Illness Jamal Díaz is a 50 year old male with a past medical history of hypertension. According to the chart the patient had been vaccinated. He tested positive for COVID-19 on March 11. He presented to the hospital on March 15 with worsening shortness of breath. In the emergency department the patient was found to be hypoxic in the 70s requiring high flow nasal cannula. CT angiogram of the chest did not reveal any pulmonary embolism. The patient had bilateral diffuse groundglass opacities primarily in the peripheral lung consistent with COVID-19. His inflammatory markers have been elevated. Procalcitonin level was borderline high at 0.51. Over the past 2 days, the patient has been treated with broad-spectrum antibiotic, remdesivir, dexamethasone. Currently he is on 80% FiO2 and saturating in the mid to high 80s to low 90s. The patient was seen and examined in the ICU. He complained of exertional shortness of breath but no significant cough, sputum production. The patient actually told me that he has been feeling better today than he did in the past couple of days. Chest x-ray today revealed more consolidative changes in bilateral lower lobes. Partial clearing of left upper lobe. All microbiologic studies have been negative so far including nasal MRSA PCR. Review of Systems Narrative: General: No fevers chills or night sweats Skin: No rash HEENT: Nasal congestion has resolved Neck: There is no neck swelling, mass or swollen glands. Respiratory: Please see my HPI. Cardiovascular: No chest pain, exertional shortness of breath Gastrointestinal: The patient had diarrhea Musculoskeletal: No joint pain or swelling Neurological: Patient is awake alert and oriented x3, no paralysis, gross motor function is normal. Psychiatric: History of depression Meds/Allergies Home Medications and Allergies Home Medications Medication Instructions Recorded Confirmed Last Taken Type amlodipine 5 mg PO QAM 03/15/21 03/15/21 03/15/21 History azithromycin See Rx Instructions .ROUTE .COMPLEX 03/15/21 03/15/21 03/15/21 History LAST DOSE TAKEN TODA diphenhydramine-acetaminophen 2 tab PO BEDTIME PRN 03/15/21 03/15/21 03/14/21 History [Tylenol PM Extra Strength] hydroxyzine HCl 50 mg PO BID PRN 03/15/21 03/15/21 Unknown History ibuprofen 400 - 600 mg PO Q6H PRN 03/15/21 03/15/21 03/15/21 12:00 History Allergies Allergy/AdvReac Type Severity Reaction Status Date / Time Penicillins Allergy Intermediate ALGY-Anaphy Verified 03/15/21 17:30 laxis Current Medications Current Medications Generic Name Dose Route Start Last Admin Trade Name Freq PRN Reason Stop Dose Admin Albuterol/Ipratropium 3 ml 03/16/21 00:00 03/17/21 15:22 Ipratropium-Albuterol 3 Ml Neb INHALATION 3 ml Q4H.RESPIRATORY MEENAKSHI Administration Alprazolam 0.5 mg 03/16/21 09:06 03/16/21 20:27 Alprazolam 0.5 Mg Tablet PO 0.5 mg TID PRN Administration ANXIETY Apixaban 5 mg 03/16/21 09:00 03/17/21 09:14 Apixaban 5 Mg Tablet PO 5 mg BID@0900,2100 MEENAKSHI Administration Ascorbic Acid 500 mg 03/16/21 18:00 03/17/21 09:08 Ascorbic Acid 500 Mg Tablet PO 500 mg BID MEENAKSHI Administration Benzonatate 100 mg 03/15/21 21:00 03/17/21 15:31 Benzonatate 100 Mg Capsule PO 100 mg TID MEENAKSHI Administration Budesonide 0.5 mg 03/16/21 09:00 03/17/21 08:33 Budesonide 0.5 Mg/2 Ml Neb INHALATION 0.5 mg BID.RESPIRATORY MEENAKSHI Administration Dexamethasone 6 mg 03/16/21 18:00 03/16/21 18:14 Dexamethasone 4 Mg/Ml Inj IVP 6 mg Q24H MEENAKSHI Administration Famotidine 20 mg 03/15/21 18:15 03/17/21 07:45 Famotidine 20 Mg/2 Ml Inj IVP 20 mg Q12H MEENAKSHI Administration Ferrous Gluconate 324 mg 03/16/21 08:00 03/17/21 07:45 Ferrous Gluconate 324 Mg Tablet PO 324 mg BIDWM MEENAKSHI Administration Fluoxetine HCl 40 mg 03/17/21 09:00 03/17/21 09:08 Fluoxetine 20 Mg Capsule PO 40 mg DAILY MEENAKSHI Administration Haloperidol Lactate 1 mg 03/17/21 01:29 03/17/21 01:41 Haloperidol Inj 5 Mg/Ml Inj 1 Ml IV 1 mg Q8H PRN Administration AGITATION Vancomycin/PEG/NADA/Lysine/Water 1,500 mg in 300 mls @ 200 mls/hr 03/15/21 20:00 03/17/21 13:24 Vancocin IV 200 mls/hr Q8H MEENAKSHI Administration Imipenem/Cilastatin Sodium 500 100 mls @ 200 mls/hr 03/15/21 22:00 03/17/21 15:31 mg/ Sodium Chloride IV 200 mls/hr Q6H MEENAKSHI Administration Protocol Remdesivir 100 mg/ Sodium 100 mls @ 100 mls/hr 03/16/21 18:00 03/16/21 19:28 Chloride IV 03/20/21 18:59 Infused Q24H MEENAKSHI Infusion dexmedeTOMIDine 0.9 % NaCL 400 mcg in 100 mls @ 0 mls/hr 03/17/21 00:00 03/17/21 14:47 Dexmedetomidine-Ns IV Infused .Q0M MEENAKSHI Titration Protocol Per Protocol Insulin Human Lispro 0 unit 03/16/21 12:00 03/17/21 12:49 Insulin Lispro 100 Unit/1 Ml SUBCUT 4 unit WM&BEDTIME MEENAKSHI Administration Protocol Morphine Sulfate 2 mg 03/15/21 21:27 03/17/21 04:35 Morphine 4 Mg/Ml Sdv 1 Ml IVP 2 mg Q4H PRN Administration SEVERE PAIN Ondansetron HCl 4 mg 03/15/21 21:27 03/17/21 01:23 Ondansetron 2 Mg/Ml Sdv 2 Ml IVP 4 mg Q8H PRN Administration vomiting, or N/V if npo Zinc Gluconate 50 mg 03/16/21 09:00 03/17/21 09:09 Zinc Gluconate 50 Mg Tablet PO 50 mg DAILY MEENAKSHI Administration PFSH Acute PFSH: Medical History HTN (hypertension) Surgical History No significant past surgical history Family History Other CAD (coronary artery disease) Denies family history of Cancer Social History Smoking and tobacco status: former smoker Alcohol intake: never Substance/Drug Use: never Caregiver/support person: Yes Lives independently: Yes Household members: family Housing: House Current occupational status: employed Current gender identity: Male Vitals/I&O/Wt Last Vital Signs Temp 98.5 F 03/16/21 18:30 Pulse 75 03/17/21 12:13 Resp 18 03/17/21 12:11 BP 122/63 03/17/21 12:00 Pulse Ox 88 L 03/17/21 12:11 03/17/21 03/17/21 03/17/21 06:59 14:59 22:59 Intake Total 530.565 / 2370.565 309.435 / 309.435 Output Total 300 / 1725 1500 / 1500 Balance 230.565 / 645.565 -1190.565 / -1190.565 Weight last 48 hrs Weight 224 lb Weight 241 lb Physical Exam Narrative: EXAM NARRATIVE: General: Patient is awake alert and oriented, tachypneic Neck: No JVD Respiratory: Auscultation: Reduced breath sound bilaterally, minimal crackles at lung bases, no wheezing or rhonchi Cardiovascular: Regular rate and rhythm, S1-S2 present, no murmur,no peripheral edema. Abdomen: Soft, nontender, nondistended, positive bowel sound Musculoskeletal: No obvious joint deformity Skin: No rash Neuro: Mental status is normal, no gross cranial nerve deficit, normal motor and coordination. Data Micro: Micro: Microbiology 03/15/21 20:43 Blood Culture - Pr eliminary Blood NEGATIVE TO SYDNIE E 03/15/21 17:18 Blood Culture - Pr eliminary Blood NEGATIVE TO SYDNIE E 03/15/21 19:47 MRSA Culture - Fin al Nose 03/15/21 19:51 Legionella Urinary Antigen - Final Urethra Other Data: Attestation for Other Data: I personally reviewed and interpreted the following: Other data: I have reviewed the patient's laboratory, microbiologic and radiologic data. The patient has anion gap metabolic acidosis. Mild leukocytosis, anemia. The radiology description is available in the HPI. A&P Assessment and plan (1) ARDS (adult respiratory distress syndrome): This is a 50-year-old gentleman with a history of hypertension coming in with ARDS secondary to SARS-CoV-2 pneumonia. The patient is currently on high flow nasal cannula, requiring 80% FiO2. The patient is tachypneic but appears comfortable. The patient has significantly elevated inflammatory markers. He received a dose of Actemra today on March 25. His chest radiology is showing evolving changes which is expected with COVID-19. The groundglass opacity that was seen on the chest CT is likely undergoing consolidative changes that was seen on the chest x-ray. Status: Acute (2) Pneumonia due to nCoV: The patient is currently on remdesivir, dexamethasone. He is broadly covered with imipenem and vancomycin. His nasal MRSA PCR is negative. I am going to discontinue the vancomycin. I will continue with imipenem. The patient had been receiving apixaban. I will continue with prophylactic dose Lovenox. There is no evidence of pulmonary embolism. I am hoping that the patient will make recovery in the near future. If necessary additional oxygen could be given over high flow nasal cannula. If noninvasive positive pressure ventilation is necessary, we will use CPAP instead of BiPAP. The patient was advised to self prone. Status: Acute Coding Level of Care Code Acute Occup Ther for [facility] [place] Diagnoses ARDS (adult respiratory distress syndrome) J80 Pneumonia due to U07.1; J12.82 Time Spent (min) 33
--- NOTE | 2021-03-17 15:42 | PM.PN ---
Subjective Subjective: Interval history: Patient had a rough night. Patient had a panic attack after her brother was also admitted in the ICU with COVID-19. He desaturated down to 70s at which BiPAP was tried which he did not tolerate. Currently on examination lying comfortably in bed, calm 0.4 which was turned down to 0.1 during the day. Patient has agreed to do more this morning and; sessions during the day. Vitals/I&O/Wt Last Vital Signs Temp 98.5 F 03/16/21 18:30 Pulse 89 03/17/21 15:41 Resp 22 H 03/17/21 15:40 BP 122/63 03/17/21 12:00 Pulse Ox 89 L 03/17/21 15:40 03/17/21 03/17/21 03/17/21 06:59 14:59 22:59 Intake Total 530.565 / 2370.565 309.435 / 309.435 Output Total 300 / 1725 1500 / 1500 Balance 230.565 / 645.565 -1190.565 / -1190.565 Weight last 48 hrs Weight 101.605 kg Weight 109.316 kg Physical Exam Narrative: EXAM NARRATIVE: General: No acute distress, AO x3 HEENT: PERRLA, pupils bilaterally equal and reactive Chest: Bilateral extensive bronchial breath sounds, coarse crackles present all over the lung qureshi, equal good air entry bilaterally CVS: S1-S2 regular, no murmurs, no tachycardia, no gallops, no rubs Abdomen: Soft, nontender, no organomegaly, bowel sounds present Neuro: No focal deficits, no facial deformity, AO x3, power 5/5 in all limbs Data : 03/17/21 04:28 03/17/21 04:28 Micro: Microbiology 03/15/21 20:43 Blood Culture - Preliminary Blood NEGATIVE TO DATE 03/15/21 17:18 Blood Culture - Preliminary Blood NEGATIVE TO DATE 03/15/21 19:47 MRSA Culture - Final Nose 03/15/21 19:51 Legionella Urinary Antigen - Final Urethra A&P Assessment and plan (1) ARDS (adult respiratory distress syndrome): Status: Acute (2) Pneumonia due to 2019-nCoV: Status: Acute (3) HTN (hypertension): Status: Acute Additional A&P Information ARDS secondary to COVID-19 pneumonia: Severe disease. Oxygen supplementation keeping saturation over 88%. Dexamethasone 6 mg daily. Remdesivir to finish a 5-day course. Vitamin C, zinc. DuoNebs every 4 hour, budesonide twice daily Pulmonary toilet with incentive spirometry flutter valve. Proning to semiprone when possible. We will monitor inflammatory markers including ferritin, ESR, CRP, D-dimer, fibrinogen. Given elevated inflammatory markers and patient requiring high oxygen supplementation with blood cultures so far been negative we will go ahead and give 1 dose of Actemra. Pulmonology/truss puller helper consulted. D-dimer elevated. CTA negative for pulmonary embolism. Continue Eliquis 5 mg twice daily. Most likely patient will need anticoagulation for 14 days on discharge. Will monitor for anemia or blood loss. Blood cultures so far negative, urine Legionella, bacterial antigen negative. Pro-Leon elevated. Sputum culture awaited. For now continue with vancomycin and imipenem. Will de-escalate as per culture results. Given hypoxia will try to keep patient as negative as possible. Echocardiogram shows an EF of 50% with normal diastolic function, mild to moderate MR with normal right ventricular pressures. Plan for net -1 L the next 24 hours. IV Lasix 40 mg stat. Strict input output charting, daily weights. Hypertension: Goal of excellent less than 140/90 mmHg. Blood pressure stable for now. Hold off antihypertensives. Type 2 diabetes mellitus: New diagnosis. HbA1c 6.2. Start insulin sliding scale at low-dose protocol as patient will be on steroids as well. Will uptitrate insulin as per daily requirements. Mechanical soft carb consistent diet. Protonix OPD prophylaxis. Eliquis will help with DVT prophylaxis as well. Guarded prognosis. Attestations Medical Necessity Statement*: Requires further hospitalization for management of ARDS secondary COVID-19 pneumonia Time Spent in Patient Care: Greater than 35 minutes (>than 50% of time spent in counselling and/or direct pt care on unit). Coding Level of Care Code Acute Content Management Consultant for [facility] [place] Diagnoses ARDS (adult respiratory distress syndrome) J80 Pneumonia due to 2019-nCoV U07.1; J12.82 HTN (hypertension) I10
[2021-03-17] MEDS: ALPRAZolam 0.5 mg Tablet PO (17:01)
[2021-03-17 17:25] LABS: Glucose Point of Care 128 mg/dL (70-110)
[2021-03-17] MEDS: remdesivir 100 MG in sodium chloride 0.9% (100 ml) 100 ML IV (17:42)
[2021-03-17] MEDS: enoxaparin 40 mg/0.4 mL Syringe SUBCUT (17:43)
[2021-03-17] MEDS: dexamethasone 4 mg/mL INJ 6 MG IVP (17:43)
[2021-03-17 19:51] LABS: Glucose Point of Care 133 mg/dL (70-110)
--- NOTE | 2021-03-17 20:55 | PC.NURSE ---
Nurse Note: 02 saturation: Pt alert and oriented x4, all vs and asessments as charted. Pt's 02 saturation dropping to low 80's, high 70's upon any type of movement or exertion/ does recover but takes a while. RT aware and checking on pt as needed. Denies pain. Pt. currently in prone position, educated on benefits of prone and/or side lying positions in r/t COVID. Will continue to monitor.
[2021-03-18] VITALS (40 sets, daily range): BP systolic 120–179; BP diastolic 69–100; PULSE 61–91; RESP 18–38; TEMP 36.2–37; O2SAT 82–95
[2021-03-18] MEDS: ipratropium-albuterol 3 mL Neb INHALATION ×6 (00:12→20:10)
[2021-03-18] MEDS: ALPRAZolam 0.5 mg Tablet PO ×2 (01:19→23:47)
[2021-03-18] MEDS: famotidine 20 mg/2 mL INJ IVP ×2 (05:22→18:22)
[2021-03-18 05:26] LABS: Basophils # 0.1 10^3/uL (0.0-0.1); Basophils % 0.4 %; Eosinophils % 0.2 %; Hemoglobin 12.1 g/dL (11.7-16.6); Lymphocytes # 0.9 10^3/uL (0.8-4.8); Lymphocytes % 5.6 %; Mean Corpuscular HGB Conc 32.7 g/dL (30.0-36.0); Mean Corpuscular Hemoglobin 29.4 pg (28.0-34.0); Mean Corpuscular Volume 89.8 fl (80-94); Mean Platelet Volume 9.1 fL (7.4-10.4); Monocytes # 0.8 10^3/uL (0.2-0.9); Monocytes % 4.8 %; Neutrophils # 13.03 10^3/uL (1.8-7.7); Neutrophils % 82.6 %; Nucleated Red Blood Cells % 0.1 %; Platelet Count 581 10^3/cmm (130-400); Red Blood Count 4.12 10^6/uL (4.1-5.3); Red Cell Distribution Width 13.2 % (12.1-15.1); White Blood Count 15.8 10^3/uL (4.0-10.0)
[2021-03-18 05:31] LABS: D Dimer 4.04 ug/mIFEU (0-0.59)
--- NOTE | 2021-03-18 05:45 | PC.NURSE ---
Nurse Note: Shift Summary: Pt remains alert and oriented x4; moves all extremities and follows all commands. 02 sat levels dropped to 70's upon exertion; takes approximately 5-10 minutes for pt to recover. Educated pt on benefits of proning. Pt finally maintained prone position for over 2 hours/sats maintained in the low 90's. RT increased 02 to 40L @ 90%. Pt currently resting with eyes closed , resp 22-24 bpm. Denies pain. No distress noted at this time. All vs and assessments as charted.
[2021-03-18 05:52] LABS: Alanine Aminotransferase 95 U/L (0-41); Albumin Level 3.6 g/dL (3.5-5.2); Alkaline Phosphatase 150 IU/L (40-130); Anion Gap 18.7 (5-19); Aspartate Amino Transferase 73 U/L (0-40); Blood Urea Nitrogen 21 mg/dL (6-20); C Reactive Protein 139.6 mg/L (0.0-4.9); Calcium 9.1 mg/dL (8.5-10.5); Carbon Dioxide 22 mmol/L (22-29); Chloride 106 mmol/L (98-107); Globulin 3.6 g/dL (1.3-4.6); Glomerular Filtration Rate 103.2 mL/min (90-130); Glucose 141 mg/dL (65-115); NT Pro B Type Natriuretic Pept 500 pg/mL (0-125); Osmolality Calculated 301 mOsm/kg (285-295); Potassium 3.7 mmol/L (3.5-5.1); Sodium 143 mmol/L (136-145); Total Bilirubin 0.6 mg/dL (0.15-1.2); Total Protein 7.2 g/dL (6.6-8.7)
--- NOTE | 2021-03-18 06:00 | XR_ITS ---
WS: [id number] Portable AP semiupright chest, 03/18/2021 Clinical Data: covid Comparison: Portable chest, 03/17/2021 Findings: The bilateral pulmonary opacities have increased slightly compared to yesterday. The heart is enlarged. Monitor leads are on the chest wall. XR/XR chest 1V portable [id number] Impression: Slight increase in bilateral pulmonary opacities.
[2021-03-18 06:14] LABS: Creatine Phosphokinase 482 U/L (39-308)
[2021-03-18 06:47] LABS: Slide Review Slide Review Perform
[2021-03-18 07:26] LABS: Ferritin 2800 ng/mL (30-400)
[2021-03-18 07:28] LABS: Glucose Point of Care 120 mg/dL (70-110)
--- NOTE | 2021-03-18 07:37 | PC.NURSE ---
Shift report taken, patient assessed and found to have diminished lung sounds throughout, oxygen saturation reading 91% with patient lying on stomach. Denies any pain at this time.
[2021-03-18] MEDS: benzonatate 100 mg Capsule PO ×3 (08:17→21:04)
[2021-03-18] MEDS: apixaban 5 mg Tablet PO ×2 (08:17→21:03)
[2021-03-18] MEDS: fluoxetine 20 mg Capsule 40 MG PO (08:17)
--- NOTE | 2021-03-18 08:24 | PC.NURSE ---
0900 medications administered. Patient requested to sit in bedside chair to eat breakfast. Oxygen saturation dropped to 69 percent, 100% O2 option selected on HHF which ran for 2 minutes. Patients saturation increased to 87 percent. Patient requested to stay in chair and is denying dizziness.
[2021-03-18] MEDS: budesonide 0.5 mg/2 mL Neb INHALATION ×2 (08:43→20:10)
[2021-03-18] MEDS: FUROsemide 40 mg Tablet PO (09:33)
[2021-03-18] MEDS: lanolin oint 7 gm 1 APPLIC TOPICAL (09:35)
--- NOTE | 2021-03-18 10:48 | PC.CHAP ---
Pastoral Care Encounter/Spiritual Assessment Type of Contact [] Declined project engineer visit [] Patient/Family/Request visit [] Outpatient visit [] Follow-up visit [] Physician referral [] Code/Alert [x] Routine visit [] Staff referral [] Actively dying [] Patient sleeping [] Family support [] [] Out of room [] Palliative care [] [] Receiving care in room [] Pre-surgical visit [] Trauma [] Long length of stay [x] ICU visit [x] Other: patient setting up in chair Relational/Emotional Strength [] Patient feels connected with others/family/visitors/staff [] Distress [] Loneliness/isolation [] Abandonment Spirituality of Patient [] Person of Jade [] Attends Buddhist of their Jade [] Believes in Prayer [] Reads Bible or Episcopalian materials [] There are Spiritual issues to be addressed Case Picker Interventions [x] Prayer [] Active listening [] Non-anxious presence [] Spiritual/emotional support [] Crisis/trauma care [] Spiritual counseling [] Bereavement support [] Provided bereavement packet [] Provided Bible/devotional materials [] Provided toy/stuffed animal, coloring book to patient or family member [] Provided Communion [] Anointing/Page [] Salvation [x] Completed spiritual assessment [] Other: Impact on Illness or Injury [] Angry [] Fearful [] Anxious [] Often cries [] Exhaustion [] Unable to work [] Unable to attend faith [] Unable to walk/stand [] Unable to read [] Unable to drive [] Unable to eat/drink [] Unable to sleep [] Unable to be with family [] Patient intubated [] Other: Summary Time spent with patient
[2021-03-18 11:12] LABS: Glucose Point of Care 119 mg/dL (70-110)
--- NOTE | 2021-03-18 13:48 | PM.PN ---
Subjective Subjective: Interval history: The patient was seen and examined in the ICU. He appears to be comfortable having lunch. His oxygen saturation is in the mid to high 80s and low 90s. Overall the patient looks better than yesterday. Chest x-ray this morning revealed questionable worsening which could have been secondary to expiratory phase. Medications: Reviewed: Yes Vitals/I&O/Wt Last Vital Signs Temp 98.0 F 03/18/21 11:55 Pulse 91 03/18/21 12:00 Resp 36 H 03/18/21 12:00 BP 160/83 03/18/21 12:00 Pulse Ox 90 03/18/21 12:00 03/17/21 03/18/21 03/18/21 22:59 06:59 14:59 Intake Total 1080 / 1389.435 100 / 1489.435 100 / 100 Output Total 1100 / 2600 800 / 3400 400 / 400 Balance -20 / -1210.565 -700 / -1910.565 -300 / -300 Physical Exam Narrative: EXAM NARRATIVE: General: Patient is awake alert and oriented, tachypnea seems to be better than yesterday Neck: No JVD Respiratory: Auscultation: Reduced breath sound bilaterally, minimal crackles at lung bases, no wheezing or rhonchi Cardiovascular: Regular rate and rhythm, S1-S2 present, no murmur,no peripheral edema. Abdomen: Soft, nontender, nondistended, positive bowel sound Musculoskeletal: No obvious joint deformity Skin: No rash Neuro: Mental status is normal, no gross cranial nerve deficit, normal motor and coordination. Data : 03/18/21 04:26 03/18/21 04:26 Attestation for Other Data: I personally reviewed and interpreted the following: Other data: I have reviewed the patient's laboratory, microbiologic and radiologic data. A&P Assessment and plan (1) ARDS (adult respiratory distress syndrome): This is a 50-year-old gentleman with a history of hypertension coming in with ARDS secondary to SARS-CoV-2 pneumonia. The patient is currently on high flow nasal cannula, requiring 90% FiO2. The patient is mildly tachypneic but appears more comfortable than yesterday. The patient has significantly elevated inflammatory markers. He received a dose of Actemra today on March 25. Status: Acute (2) Pneumonia due to 2019-nCoV: The patient is currently on remdesivir, dexamethasone. He is on imipenem. The patient is on apixaban as per the primary team. I am hoping that the patient will make recovery in the near future. If necessary additional oxygen could be given over high flow nasal cannula. If noninvasive positive pressure ventilation is necessary, we will use CPAP instead of BiPAP. The patient was advised to self prone. Status: Acute Attestations Medical Necessity Statement*: Will defer to the primary team Coding Level of Care Code Acute Electrical Instrumentation Technician for [facility] Diagnoses ARDS (adult respiratory distress syndrome) J80 Pneumonia due to 2019-nCoV U07.1; J12.82
--- NOTE | 2021-03-18 13:58 | PC.NURSE ---
[address] Smith. Reviewed vital signs and medications. Orders to use NRB for drops in O2.
--- NOTE | 2021-03-18 15:37 | PM.PN ---
Subjective Subjective: Interval history: Patient on exam today sitting up in chair on 40L 90% saturating 91%. Saturating well even while conversation and saturation improved to 96% when proning. He is proning well. Complaint with IS,flutter valve, proning. Actually looking better than yesterday. Off precedex, more calm today. Vitals/I&O/Wt Last Vital Signs Temp 98.0 F 03/18/21 11:55 Pulse 71 03/18/21 14:21 Resp 36 H 03/18/21 12:00 BP 160/83 03/18/21 12:00 Pulse Ox 90 03/18/21 12:00 03/18/21 03/18/21 03/18/21 06:59 14:59 22:59 Intake Total 100 / 1489.435 100 / 100 Output Total 800 / 3400 400 / 400 Balance -700 / -1910.565 -300 / -300 Physical Exam Narrative: EXAM NARRATIVE: General: No acute distress, AO x3 HEENT: PERRLA, pupils bilaterally equal and reactive Chest: Bilateral extensive bronchial breath sounds, coarse crackles present all over the lung qureshi, equal good air entry bilaterally CVS: S1-S2 regular, no murmurs, no tachycardia, no gallops, no rubs Abdomen: Soft, nontender, no organomegaly, bowel sounds present Neuro: No focal deficits, no facial deformity, AO x3, power 5/5 in all limbs Data : 03/18/21 04:26 03/18/21 04:26 A&P Assessment and plan (1) ARDS (adult respiratory distress syndrome): Status: Acute (2) Pneumonia due to 2019-nCoV: Status: Acute (3) HTN (hypertension): Status: Acute Additional A&P Information ARDS secondary to COVID-19 pneumonia: Severe disease. Oxygen supplementation keeping saturation over 88%. Post Actemra on 03/17 Dexamethasone 6 mg daily. Remdesivir to finish a 5-day course. Last dose 03/20 Vitamin C, zinc. DuoNebs every 4 hour, budesonide twice daily. Aggressive pulmonary toilet with incentive spirometry flutter valve. Proning to semiprone when possible. We will monitor inflammatory markers including ferritin, ESR, CRP, D-dimer, fibrinogen. Trending today. CRP halved as to admission. D-dimer elevated. CTA negative for pulmonary embolism. But as patient still needing high O2 supplementation for now we will continue Eliquis 5 mg twice daily. Most likely patient will need anticoagulation for 14 days on discharge. Will monitor for anemia or blood loss. Blood cultures so far negative, urine Legionella, bacterial antigen negative, MRSA negative. Pro-Leon elevated. Sputum culture awaited. C/w imipenem. Stop Vancomycin. Given hypoxia will try to keep patient as negative as possible. Echocardiogram shows an EF of 50% with normal diastolic function, mild to moderate MR with normal right ventricular pressures. Plan for net -1 L the next 24 hours. IV Lasix 40 mg stat. Monitor renal functions. Strict input output charting, daily weights. Appreciate Pulmonology recs. Hypertension: Goal of excellent less than 140/90 mmHg. Blood pressure stable for now. Hold off antihypertensives. Type 2 diabetes mellitus: New diagnosis. HbA1c 6.2. Start insulin sliding scale at low-dose protocol as patient will be on steroids as well. Will uptitrate insulin as per daily requirements. Mechanical soft carb consistent diet. Protonix OPD prophylaxis. Eliquis will help with DVT prophylaxis as well. Guarded prognosis. Plan for day: C/w aggressive pulmonary toilet, proning when possible. Wean O2 keeping saturation over 88%. Lasix 40 IV. Strict I/O. Remdesevir. Attestations Medical Necessity Statement*: For ARDS 2/2 Covid 19 Critical Care Time: The high probability of a clinically significant, sudden or life threatening deterioration of the patient's [Pulmonary] system(s) required my full and direct attention, intervention and personal management. The critical care time is as shown. This time is in addition to time spent performing any reported procedures but includes the following: [x] Data and vital sign review and interpretation [x] Patient assessment, examination and intervention [x] Documentation [x] Medication orders and management Critical Care Time (min): 70 Coding Level of Care Code Acute Bufferer for [facility] Fwd Diagnoses ARDS (adult respiratory distress syndrome) J80 Pneumonia due to 2019-nCoV U07.1; J12.82 HTN (hypertension) I10
[2021-03-18 17:55] LABS: Glucose Point of Care 121 mg/dL (70-110)
[2021-03-18] MEDS: dexamethasone 4 mg/mL INJ 6 MG IVP (18:21)
[2021-03-18] MEDS: remdesivir 100 MG in sodium chloride 0.9% (100 ml) 100 ML IV (18:22)
--- NOTE | 2021-03-18 18:46 | PC.NURSE ---
All charting by Katharine Farrell reviewed and confirmed.
--- NOTE | 2021-03-18 18:47 | NUR.SHIFT ---
Shift Note Frequent safety and comfort rounds continue. Orders and/or nursing care completed as indicated. Patient monitored for response to intervention and treatment(s). Education provided includes medication education, oxygen education, and positions for optimal oxygenation. Patient and/or promotions representative verbalizes understanding to teaching. Patient oxygen saturation decreases into the low to mid 60's with position changes, is able to recover to mid to low 90's with assistance of nonrebreather mask. Patient experiences strong coughing with position changes and states it makes him short of breath.
[2021-03-18 19:30] LABS: Glucose Point of Care 147 mg/dL (70-110)
--- NOTE | 2021-03-18 20:00 | NUR.SHIFT ---
Nurse Note: SS insulin: Pt's BG 147 @ HS. SS insulin not given d/t pt not eating. Will continue to monitor.
[2021-03-19] VITALS (35 sets, daily range): BP systolic 101–172; BP diastolic 71–107; PULSE 61–97; RESP 18–32; TEMP 36.6–37; O2SAT 78–97
[2021-03-19] MEDS: ipratropium-albuterol 3 mL Neb INHALATION ×6 (00:08→19:56)
--- NOTE | 2021-03-19 00:19 | PC.NURSE ---
NURSE NOTE: Mabry cath insert: At approximately 2330, pt got up to side of bed to urinate. 02 levels dropped to lower 60's upon activity. Placed call to Dr. Parker and received order to place mabry catheter at this time. Mabry cath placed per Kevin AMBROSIO. Pt. denies discomfort at this time. All vs and assessments as charted.
[2021-03-19 03:32] LABS: Basophils # 0.1 10^3/uL (0.0-0.1); Basophils % 0.7 %; Eosinophils % 0.1 %; Hematocrit 37.4 % (42.0-52.0); Hemoglobin 12.8 g/dL (11.7-16.6); Lymphocytes # 0.7 10^3/uL (0.8-4.8); Lymphocytes % 4.5 %; Mean Corpuscular HGB Conc 34.2 g/dL (30.0-36.0); Mean Corpuscular Hemoglobin 30.2 pg (28.0-34.0); Mean Corpuscular Volume 88.2 fl (80-94); Mean Platelet Volume 8.8 fL (7.4-10.4); Monocytes # 0.6 10^3/uL (0.2-0.9); Monocytes % 3.7 %; Neutrophils # 12.64 10^3/uL (1.8-7.7); Neutrophils % 81.9 %; Nucleated Red Blood Cells # 0.1 /100WBC; Nucleated Red Blood Cells % 0.4 %; Platelet Count 655 10^3/cmm (130-400); Red Blood Count 4.24 10^6/uL (4.1-5.3); Red Cell Distribution Width 13.2 % (12.1-15.1); White Blood Count 15.4 10^3/uL (4.0-10.0)
[2021-03-19 03:55] LABS: D Dimer 16.57 ug/mIFEU (0-0.59)
[2021-03-19 03:58] LABS: C Reactive Protein 65.5 mg/L (0.0-4.9); Slide Review Slide Review Perform
[2021-03-19 04:02] LABS: Alanine Aminotransferase 118 U/L (0-41); Albumin Level 3.4 g/dL (3.5-5.2); Alkaline Phosphatase 152 IU/L (40-130); Anion Gap 19.9 (5-19); Aspartate Amino Transferase 87 U/L (0-40); Blood Urea Nitrogen 21 mg/dL (6-20); Carbon Dioxide 22 mmol/L (22-29); Chloride 103 mmol/L (98-107); Globulin 3.3 g/dL (1.3-4.6); Glomerular Filtration Rate 120.4 mL/min (90-130); Glucose 151 mg/dL (65-115); Osmolality Calculated 298 mOsm/kg (285-295); Potassium 3.9 mmol/L (3.5-5.1); Sodium 141 mmol/L (136-145); Total Protein 6.7 g/dL (6.6-8.7)
[2021-03-19 05:08] LABS: Ferritin 2667 ng/mL (30-400)
[2021-03-19] MEDS: famotidine 20 mg/2 mL INJ IVP ×2 (05:40→18:07)
[2021-03-19 07:15] LABS: Glucose Point of Care 115 mg/dL (70-110)
[2021-03-19] MEDS: budesonide 0.5 mg/2 mL Neb INHALATION ×2 (07:43→19:57)
--- NOTE | 2021-03-19 08:08 | PC.NURSE ---
Report taken, morning rounding completed, patient is currently in bedside chair eating breakfast. Oxygen saturation is at 89 percent at this time.
[2021-03-19] MEDS: apixaban 5 mg Tablet PO ×2 (09:19→22:41)
[2021-03-19] MEDS: fluoxetine 20 mg Capsule 40 MG PO (09:19)
[2021-03-19] MEDS: fluticasone nasal spray 16gm Btl 2 SPRAY NASAL ×2 (09:19→18:07)
[2021-03-19] MEDS: benzonatate 100 mg Capsule PO ×3 (09:20→22:41)
[2021-03-19] MEDS: zinc gluconate 50 mg Tablet PO (09:22)
[2021-03-19] MEDS: FUROsemide 10 mg/mL SDV 10mL 60 MG IVP (09:28)
--- NOTE | 2021-03-19 10:19 | PC.NUTR ---
Nutrition assessment: PO intakes unclear--45% average X 5 meals but 4 other meals unknown. Nurse reports pt with SOB while eating, have added chocolate Glucerna with meals per pt preference. This RD Noted Vit C and zinc mentioned in MD notes, however not ordered at this time. Discussed with nurse, who clarified with MD and both were ordered at this time. See full RD assessment for further details.
[2021-03-19 11:45] LABS: Glucose Point of Care 108 mg/dL (70-110)
[2021-03-19] MEDS: ALPRAZolam 0.5 mg Tablet PO (11:47)
--- NOTE | 2021-03-19 13:17 | P.PN_ITS ---
Subjective Subjective: Interval history: No acute events overnight. On exam sitting up in chair. States did not have a good night sleep. Looks comfortable. Saturating over 90% on heated high flow 90% while sitting in the chair and going up to 95% when proning. Has been working well with I-S, Acapella and proning as well. Documented urine output in last 24 hours around 1750 with net 615 -. Has remained hemodynamically stable and afebrile atient on exam today sitting up in chair on 40L 90% saturating 91%. Saturating well even while conversation and saturation improved to 96% when proning. He is proning well. Complaint with IS,flutter valve, proning. Actually looking better than yesterday. Off precedex, more calm today. Medications: Reviewed: Yes Vitals/I&O/Wt Last Vital Signs Temp 97.9 F 03/19/21 11:00 Pulse 78 03/19/21 12:00 Resp 22 H 03/19/21 12:00 BP 162/90 03/19/21 12:00 Pulse Ox 94 03/19/21 12:00 03/18/21 03/19/21 03/19/21 22:59 06:59 14:59 Intake Total 900 / 1000 100 / 1100 100 / 100 Output Total 550 / 950 800 / 1750 Balance 350 / 50 -700 / -650 100 / 100 Physical Exam Narrative: EXAM NARRATIVE: General: No acute distress, AO x3 HEENT: PERRLA, pupils bilaterally equal and reactive Chest: Bilateral extensive bronchial breath sounds, coarse crackles present all over the lung qureshi, equal good air entry bilaterally CVS: S1-S2 regular, no murmurs, no tachycardia, no gallops, no rubs Abdomen: Soft, nontender, no organomegaly, bowel sounds present Neuro: No focal deficits, no facial deformity, AO x3, power 5/5 in all limbs Urinary Catheter Management^: Hung: Cath Placed During This Visit: yes Reason for Continuing Indwelling Catheter: Accurate Measurement of Urinary Output in Critically Ill Patients Urinary Catheter Date of Insertion: 03/18/21 Urinary Catheter Time of Insertion: 23:45 Data : 03/20/21 04:48 03/20/21 04:48 A&P Assessment and plan (1) ARDS (adult respiratory distress syndrome): Status: Acute (2) Pneumonia due to 2019-nCoV: Status: Acute (3) HTN (hypertension): Status: Acute (4) Elevated d-dimer: Status: Acute Additional A&P Information ARDS secondary to COVID-19 pneumonia: Severe disease. Oxygen supplementation keeping saturation over 88%. Post Actemra on 03/17 Dexamethasone 6 mg daily. Remdesivir to finish a 5-day course. Last dose 03/20 Vitamin C, zinc. DuoNebs every 4 hour, budesonide twice daily. Aggressive pulmonary toilet with incentive spirometry flutter valve. Proning to semiprone when possible. We will monitor inflammatory markers including ferritin, ESR, CRP, D-dimer, fibrinogen. Trending today. CRP halved as to admission. CTA negative for pulmonary embolism. D-dimer elevated to 14 today. We will continue with Eliquis 5 mg twice daily. Most likely patient will need anticoagulation for 14 days on discharge. Will monitor for anemia or blood loss. Blood cultures so far negative, urine Legionella, bacterial antigen negative, MRSA negative. Pro-Leon elevated. Sputum culture awaited. C/w imipenem. Will do a 7-day course. Given hypoxia will try to keep patient as negative as possible. Echocardiogram shows an EF of 50% with normal diastolic function, mild to moderate MR with normal right ventricular pressures. Plan for net -1 L the next 24 hours. IV Lasix 40 mg stat. Monitor renal functions. Strict input output charting, daily weights. Appreciate Pulmonology recs. Hypertension: Goal of excellent less than 140/90 mmHg. Blood pressure stable for now. Hold off antihypertensives. Type 2 diabetes mellitus: New diagnosis. HbA1c 6.2. Start insulin sliding scale at low-dose protocol as patient will be on steroids as well. Will uptitrate insulin as per daily requirements. Mechanical soft carb consistent diet. Protonix OPD prophylaxis. Eliquis will help with DVT prophylaxis as well. Guarded prognosis. Plan for day: C/w aggressive pulmonary toilet, proning when possible. Wean O2 keeping saturation over 88%. Lasix 40 IV. Strict I/O. Remdesevir. Attestations Medical Necessity Statement*: Requires further hospitalization for management of ARDS secondary to COVID-19 pneumonia while patient is high oxygen dependent. Time Spent in Patient Care: Greater than 35 minutes (>than 50% of time spent in counselling and/or direct pt care on unit) . Coding Level of Care Code Acute Liability Claims Representative for [facility] Fwd Diagnoses ARDS (adult respiratory distress syndrome) J80 Pneumonia due to 2019-nCoV U07.1; J12.82 HTN (hypertension) I10 Elevated d-dimer R79.89
[2021-03-19 17:26] LABS: Glucose Point of Care 151 mg/dL (70-110)
[2021-03-19] MEDS: remdesivir 100 MG in sodium chloride 0.9% (100 ml) 100 ML IV (18:04)
[2021-03-19] MEDS: ascorbic acid 500 mg Tablet PO (18:04)
[2021-03-19] MEDS: insulin lispro 100 unit/1 mL SUBCUT ×2 (18:05→22:41)
[2021-03-19] MEDS: dexamethasone 4 mg/mL INJ 6 MG IVP (18:07)
--- NOTE | 2021-03-19 18:30 | PC.NURSE ---
20G IV left hand, infiltrated.Patient reported no pain. Edema present. Replaced IV with 20G in right forearm.
--- NOTE | 2021-03-19 18:33 | NUR.SHIFT ---
Shift Note Frequent safety and comfort rounds continue. Orders and/or nursing care completed as indicated. Patient monitored for response to intervention and treatment(s). Education provided includes plan of care, medication education upon administration, activity, diet education. Patient and/or compliance representative dealer verbally acknowledges understanding of teachings. Mr. Díaz remains unable to tolerate activity due to decrease in oxygen upon exertion. Oxygen levels have fallen to the low to mid 70's today with movement, however patient recovers to the low 90's with nonrebreather mask.
--- NOTE | 2021-03-19 18:53 | PC.NURSE ---
All charting by Katharine Delgado reviewed and confirmed.
[2021-03-19 22:34] LABS: Glucose Point of Care 198 mg/dL (70-110)
[2021-03-19] MEDS: donepezil 5 MG Tablet 10 MG PO (22:41)
[2021-03-20] VITALS (58 sets, daily range): BP systolic 111–152; BP diastolic 62–89; PULSE 58–95; RESP 12–31; TEMP 36.2–36.6; O2SAT 83–96
[2021-03-20] MEDS: ipratropium-albuterol 3 mL Neb INHALATION ×7 (00:39→23:32)
[2021-03-20] MEDS: ALPRAZolam 0.5 mg Tablet PO ×2 (00:54→21:00)
[2021-03-20 04:40] LABS: Blood Gas Sample Site Radial, right
[2021-03-20 05:15] LABS: Basophils # 0.1 10^3/uL (0.0-0.1); Basophils % 0.7 %; Eosinophils # 0.1 10^3/uL (0.0-0.8); Eosinophils % 0.4 %; Hematocrit 40.6 % (42.0-52.0); Hemoglobin 13.5 g/dL (11.7-16.6); Lymphocytes # 0.8 10^3/uL (0.8-4.8); Lymphocytes % 5.3 %; Mean Corpuscular HGB Conc 33.3 g/dL (30.0-36.0); Mean Corpuscular Hemoglobin 29.5 pg (28.0-34.0); Mean Corpuscular Volume 88.8 fl (80-94); Mean Platelet Volume 8.7 fL (7.4-10.4); Monocytes # 0.5 10^3/uL (0.2-0.9); Monocytes % 3.3 %; Neutrophils # 11.74 10^3/uL (1.8-7.7); Neutrophils % 79.4 %; Nucleated Red Blood Cells % 0.3 %; Platelet Count 515 10^3/cmm (130-400); Red Blood Count 4.57 10^6/uL (4.1-5.3); Red Cell Distribution Width 13.2 % (12.1-15.1); White Blood Count 14.8 10^3/uL (4.0-10.0)
[2021-03-20] MEDS: famotidine 20 mg/2 mL INJ IVP ×2 (05:18→18:26)
[2021-03-20 05:44] LABS: Alanine Aminotransferase 106 U/L (0-41); Albumin Level 3.6 g/dL (3.5-5.2); Alkaline Phosphatase 159 IU/L (40-130); Anion Gap 21.6 (5-19); Aspartate Amino Transferase 38 U/L (0-40); Blood Urea Nitrogen 24 mg/dL (6-20); Calcium 9.2 mg/dL (8.5-10.5); Carbon Dioxide 22 mmol/L (22-29); Chloride 103 mmol/L (98-107); Globulin 3.3 g/dL (1.3-4.6); Glomerular Filtration Rate 103.2 mL/min (90-130); Glucose 152 mg/dL (65-115); Osmolality Calculated 303 mOsm/kg (285-295); Potassium 3.6 mmol/L (3.5-5.1); Sodium 143 mmol/L (136-145); Total Bilirubin 0.9 mg/dL (0.15-1.2); Total Protein 6.9 g/dL (6.6-8.7)
[2021-03-20 05:46] LABS: Procalcitonin 0.14 ng/mL (0-0.5)
--- NOTE | 2021-03-20 06:00 | XRR_ITS ---
PROCEDURE INFORMATION: Exam: XR Chest Exam date and time: 03/20/2021 6:00 AM Age: 50 years old Clinical indication: Shortness of breath; Patient HX: F/u covid pneumonia TECHNIQUE: Imaging protocol: XR of the chest. Views: 1 view. COMPARISON: CR XR chest 1V portable [id number] 03/18/2021 5:37 AM FINDINGS: Lungs: Extensive mixed interstitial/alveolar opacities throughout both lungs, overall decreased from prior study. These are consistent with multifocal pneumonia (pulmonary edema could be contributing). Pleural spaces: No visible pneumothorax or pleural effusion. Heart/Mediastinum: Heart size within normal limits. Bones/joints: No emergent findings identified. Other findings: The patient is rotated to the right, limiting examination. XR/XR chest 1V portable [id number] IMPRESSION: 1. Extensive mixed interstitial/alveolar opacities throughout both lungs, overall decreased from prior study. These are consistent with multifocal pneumonia (pulmonary edema could be contributing). Radiation Dose CTDIVOL = (mGy): DLP = (mGy-cm)
[2021-03-20 06:04] LABS: Slide Review Slide Review Perform
--- NOTE | 2021-03-20 07:22 | PC.NURSE ---
Shift Note Frequent safety and comfort rounds continue. Orders and/or nursing care completed as indicated. Patient monitored for response to intervention and treatment(s). Education provided to the patient, and education received well. Urine output for the shift was 875 mL. The patient did well on the heated HiFLO with an oxygen saturation in the low to mid 90's. There were no other new changes during the shift.
[2021-03-20 07:45] LABS: Glucose Point of Care 124 mg/dL (70-110)
[2021-03-20] MEDS: budesonide 0.5 mg/2 mL Neb INHALATION ×2 (07:55→20:47)
[2021-03-20] MEDS: fluoxetine 20 mg Capsule 40 MG PO (09:17)
[2021-03-20] MEDS: benzonatate 100 mg Capsule PO ×3 (09:17→20:41)
[2021-03-20] MEDS: zinc gluconate 50 mg Tablet PO (09:17)
[2021-03-20] MEDS: ascorbic acid 500 mg Tablet PO ×2 (09:17→18:26)
[2021-03-20] MEDS: fluticasone nasal spray 16gm Btl 2 SPRAY NASAL ×2 (09:19→18:27)
[2021-03-20] MEDS: apixaban 5 mg Tablet PO ×2 (09:26→20:41)
[2021-03-20 09:36] LABS: Blood Gas Allen Test Pos; Blood Gas Sample Type Arterial; Ionized Calcium Level - ABG 1.2 mmol/L (1.1-1.4); Potassium Level - ABG 3.4 mmol/L (3.5-5.0)
[2021-03-20 10:27] LABS: PO2 ABG 54.7 mmHg (80.0-100.0)
[2021-03-20 10:28] LABS: Base Excess ABG 1.2 mmol/L (-2.0-2.0); HCO3 ABG 23.5 mmol/L (22-26); Oxygen Saturation ABG 89.9
[2021-03-20 10:29] LABS: Arterial Blood Gas Hematocrit 42.6 % (42-52)
[2021-03-20 10:30] LABS: Alveolar-Arterial Oxygen Gradi 532.5 mmHg (5-10); HGB O2 Sat 88.7 % (95-100); Total Hemoglobin 13.9 g/dL (14-18)
[2021-03-20 10:31] LABS: Carboxyhemoglobin 0.9 %THgb (0.4-20.1); Methemoglobin 0.4 % (0.4-1.5)
--- NOTE | 2021-03-20 11:55 | PC.NURSE ---
Rounding 0934: Spoke with Dr. Mckeon this morning. Dr. Mckeon ordered to remove nonrebreather mask that patient had been using while lying on side in bed to assess patients oxygenation saturation with HHF only. This AM patients oxygen remained in the low 80's after moving from chair to bed. Currently patient is at 91 percent on HHF only. Monitoring urine output and will notify provider of output at approximately 1600 per verbal orders. Patient encouraged to use IS and Flutter valve.
[2021-03-20 12:22] LABS: Glucose Point of Care 123 mg/dL (70-110)
[2021-03-20 12:33] LABS: C Reactive Protein 34.3 mg/L (0.0-4.9)
[2021-03-20 12:51] LABS: Ferritin 2305 ng/mL (30-400)
--- NOTE | 2021-03-20 12:59 | PC.NURSE ---
1251: Clarified Dr. Mckeon's order to hold Lasix and evaluate urine output at 1600 via VOLTE.
--- NOTE | 2021-03-20 14:16 | P.PN_ITS ---
Subjective Subjective: Interval history: Today morning on examination patient laying in prone position saturating 94% on 90% FiO2 35 L. States did not have a good night sleep as was kept awake again and again because of some blood work or investigations. States feeling tired today. From breathing perspective he states he feels a little better than yesterday. Has been using nonrebreather on and off in between b but lesser than yesterday. Documented urine output around 3 L since yesterday. Medications: Reviewed: Yes Vitals/I&O/Wt Last Vital Signs Temp 97.6 F 03/20/21 11:00 Pulse 74 03/20/21 12:00 Resp 12 03/20/21 12:00 BP 135/77 03/20/21 12:00 Pulse Ox 92 03/20/21 12:00 03/19/21 03/20/21 03/20/21 22:59 06:59 14:59 Intake Total 200 / 540 300 / 840 340 / 340 Output Total 500 / 2500 875 / 3375 Balance -300 / -1960 -575 / -2535 340 / 340 Physical Exam Narrative: EXAM NARRATIVE: General: No acute distress, AO x3 HEENT: PERRLA, pupils bilaterally equal and reactive Chest: Bilateral extensive bronchial breath sounds, coarse crackles present all over the lung qureshi, equal good air entry bilaterally CVS: S1-S2 regular, no murmurs, no tachycardia, no gallops, no rubs Abdomen: Soft, nontender, no organomegaly, bowel sounds present Neuro: No focal deficits, no facial deformity, AO x3, power 5/5 in all limbs Urinary Catheter Management^: Hung: Cath Placed During This Visit: yes Reason for Continuing Indwelling Catheter: Accurate Measurement of Urinary Output in Critically Ill Patients Urinary Catheter Date of Insertion: 03/18/21 Urinary Catheter Time of Insertion: 23:45 Data : 03/20/21 04:48 03/20/21 04:48 A&P Assessment and plan (1) ARDS (adult respiratory distress syndrome): Status: Acute (2) Pneumonia due to 2019-nCoV: Status: Acute (3) HTN (hypertension): Status: Acute (4) Elevated d-dimer: Status: Acute Additional A&P Information ARDS secondary to COVID-19 pneumonia: Severe disease. Oxygen supplementation keeping saturation over 88%. Post Actemra on 10/20 Dexamethasone 6 mg daily. Remdesivir to finish a 5-day course. Last dose 03/20 Vitamin C, zinc. DuoNebs every 4 hour, budesonide twice daily. Aggressive pulmonary toilet with incentive spirometry flutter valve. Proning to semiprone when possible. We will monitor inflammatory markers including ferritin, ESR, CRP, D-dimer, fibrinogen. Trending today. CRP halved as to admission. CTA negative for pulmonary embolism. D-dimer elevated. We will continue with Eliquis 5 mg twice daily. Most likely patient will need anticoagulation for 14 days on discharge. Will monitor for anemia or blood loss. Blood cultures so far negative, urine Legionella, bacterial antigen negative, MRSA negative. Pro-Leon elevated. Sputum culture awaited. C/w imipenem. Last dose 03/22. Given hypoxia will try to keep patient as negative as possible. Echocardiogram shows an EF of 50% with normal diastolic function, mild to moderate MR with normal right ventricular pressures. Plan for net -1 L the next 24 hours. Repeat Lasix during the day today if patient remains hemodynamically stable. Monitor renal functions. Strict input output charting, daily weights. Appreciate Pulmonology recs. Hypertension: Goal of excellent less than 140/90 mmHg. Blood pressure stable for now. Hold off antihypertensives. Type 2 diabetes mellitus: New diagnosis. HbA1c 6.2. Start insulin sliding scale at low-dose protocol as patient will be on steroids as well. Will uptitrate insulin as per daily requirements. Anxiety: Most likely secondary to hypoxia, COVID-19. Decrease dose of Prozac from 40 to 20 mg Mechanical soft carb consistent diet. Protonix OPD prophylaxis. Eliquis will help with DVT prophylaxis as well. Guarded prognosis. Plan for day: C/w aggressive pulmonary toilet, proning when possible. Wean O2 keeping saturation over 88%. Lasix 40 IV. Strict I/O. Remdesevir. Attestations Medical Necessity Statement*: Hospitalization for management of ARDS secondary COVID-19 pneumonia Critical Care Time: The high probability of a clinically significant, sudden or life threatening deterioration of the patient's [pulmonary] system(s) required my full and direct attention, intervention and personal management. The critical care time is as shown. This time is in addition to time spent performing any reported procedures but includes the following: [x] Data and vital sign review and interpretation [x] Patient assessment, examination and intervention [x] Documentation [x] Medication orders and management Critical Care Time (min): 60 Coding Level of Care Code Acute Information Security Director for [facility] Fwd Diagnoses ARDS (adult respiratory distress syndrome) J80 Pneumonia due to 2019-nCoV U07.1; J12.82 HTN (hypertension) I10 Elevated d-dimer R79.89
--- NOTE | 2021-03-20 14:25 | P.PN_ITS ---
Subjective Subjective: Interval history: The patient was seen and examined. He was sitting in a chair having lunch. The patient appears much less tachypneic today. Oxygen saturation in the high 80s to low 90s. The patient tells me he is feeling better than how he felt when he came in and more or less stable. His latest chest x-ray this morning actually showed less infiltrate compared to before. Medications: Reviewed: Yes Vitals/I&O/Wt Last Vital Signs Temp 97.6 F 03/20/21 11:00 Pulse 74 03/20/21 12:00 Resp 12 03/20/21 12:00 BP 135/77 03/20/21 12:00 Pulse Ox 92 03/20/21 12:00 03/19/21 03/20/21 03/20/21 22:59 06:59 14:59 Intake Total 200 / 540 300 / 840 340 / 340 Output Total 500 / 2500 875 / 3375 Balance -300 / -1960 -575 / -2535 340 / 340 Physical Exam Narrative: EXAM NARRATIVE: General: Patient is awake alert and oriented, in no distress Neck: No JVD Respiratory: Auscultation: Reduced breath sound bilaterally, no crackles wheezing or rhonchi Cardiovascular: Regular rate and rhythm, S1-S2 present, no murmur,no peripheral edema. Abdomen: Soft, nontender, nondistended, positive bowel sound Musculoskeletal: No obvious joint deformity Skin: No rash Neuro: Mental status is normal, no gross cranial nerve deficit, normal motor and coordination. Urinary Catheter Management^: Hung: Cath Placed During This Visit: yes Reason for Continuing Indwelling Catheter: Accurate Measurement of Urinary Output in Critically Ill Patients Urinary Catheter Date of Insertion: 03/18/21 Urinary Catheter Time of Insertion: 23:45 Data : 03/20/21 04:48 03/20/21 04:48 Attestation for Other Data: I personally reviewed and interpreted the following: Other data: I have reviewed the patient's laboratory microbiologic and radiologic data. The patient has stable leukocytosis and thrombocytosis. No renal dysfunction. Blood sugar is acceptable. Chest x-ray today revealed improving infiltrate. A&P Assessment and plan (1) ARDS (adult respiratory distress syndrome): This is a 50-year-old gentleman with a history of hypertension coming in with ARDS secondary to SARS-CoV-2 pneumonia. The patient is still requiring 85% oxygen on high flow nasal cannula however the patient is certainly not as tachypneic as he was before. The patient looks comfortable. Status: Acute (2) Pneumonia due to 2018-nCoV: The patient is currently on remdesivir, dexamethasone. He is on imipenem. He is anticoagulated with apixaban. I believe the patient will continue to make recovery over the next 48 hours. Status: Acute Attestations Medical Necessity Statement*: Will defer to the primary team Coding Level of Care Code Acute Configuration Developer for [facility] Diagnoses ARDS (adult respiratory distress syndrome) J80 Pneumonia due to U07.1; J12.82
--- NOTE | 2021-03-20 15:11 | PC.NURSE ---
All charting done by Katharine David from 0700 until 1500 reviewed and confirmed.
[2021-03-20] MEDS: FUROsemide 40 mg Tablet PO (16:05)
--- NOTE | 2021-03-20 16:09 | PC.NURSE ---
VOLTNeptali Order: Urine output reported to Dr. Mckeon at 1600. Furosemide administered per Dr. Mckeon's VOLTE order.
[2021-03-20 17:03] LABS: Glucose Point of Care 108 mg/dL (70-110)
[2021-03-20] MEDS: dexamethasone 4 mg/mL INJ 6 MG IVP (18:26)
[2021-03-20] MEDS: remdesivir 100 MG in sodium chloride 0.9% (100 ml) 100 ML IV (18:26)
--- NOTE | 2021-03-20 18:51 | NUR.SHIFT ---
Shift Note Frequent safety and comfort rounds continue. Orders and/or nursing care completed as indicated. Patient monitored for response to intervention and treatment(s). Education provided includes SI use and Flutter valve use, Medication education, oxygen education, activity education. Patient verbalized understanding of teachings. Patient is currently on HHF 40L 80%. Oxygen is in the low to mid 80's with activity, but recovers to low 90's. Patient is AOX3. Denies any pain at this time.
[2021-03-20 19:53] LABS: Glucose Point of Care 189 mg/dL (70-110)
[2021-03-20] MEDS: insulin lispro 100 unit/1 mL SUBCUT (20:32)
[2021-03-20] MEDS: nystatin 100,000 unit/mL UDC 5 mL 100000 UNIT PO (20:40)
[2021-03-20] MEDS: donepezil 5 MG Tablet 10 MG PO (20:42)
[2021-03-21] VITALS (82 sets, daily range): BP systolic 82–146; BP diastolic 45–83; PULSE 61–104; RESP 11–38; TEMP 35.8–36.9; O2SAT 79–97; BMI 29.7
--- NOTE | 2021-03-21 03:05 | PC.NURSE ---
Shift Note Frequent safety and comfort rounds continue. Orders and/or nursing care completed as indicated. Patient monitored for response to intervention and treatment(s). Education provided includes fall safety, oxygen safety and goals, medications with side effects, POC with goals of treatment. Patient verbalized understanding of education. Patient did well with self proning, and maintaining SpOx >88%. Patient c/o noisy new patient in connected room by only plastic and patient not able to sleep or rest due to the continued disturbances. This nurse provided cotton balls to place in ears, than when this nurse saw patient placing pillow over head in attempts to quiet the noise, charge nurse informed and patient moved to new room which was much more quiet and patient able to rest better. All lines and tubes patent, mabry draining. Will continue to monitor.
[2021-03-21] MEDS: ipratropium-albuterol 3 mL Neb INHALATION ×6 (03:11→23:29)
[2021-03-21 03:25] LABS: Basophils # 0.1 10^3/uL (0.0-0.1); Basophils % 0.5 %; Eosinophils # 0.2 10^3/uL (0.0-0.8); Hematocrit 41.3 % (42.0-52.0); Hemoglobin 13.6 g/dL (11.7-16.6); Lymphocytes # 0.7 10^3/uL (0.8-4.8); Lymphocytes % 4.5 %; Mean Corpuscular HGB Conc 32.9 g/dL (30.0-36.0); Mean Corpuscular Volume 91.2 fl (80-94); Mean Platelet Volume 8.7 fL (7.4-10.4); Monocytes # 0.5 10^3/uL (0.2-0.9); Monocytes % 2.8 %; Neutrophils % 80.4 %; Nucleated Red Blood Cells % 0 %; Platelet Count 441 10^3/cmm (130-400); Red Blood Count 4.53 10^6/uL (4.1-5.3); Red Cell Distribution Width 12.8 % (12.1-15.1); White Blood Count 16.4 10^3/uL (4.0-10.0)
[2021-03-21 03:49] LABS: Alanine Aminotransferase 70 U/L (0-41); Albumin Level 3.5 g/dL (3.5-5.2); Alkaline Phosphatase 131 IU/L (40-130); Anion Gap 17.2 (5-19); Aspartate Amino Transferase 25 U/L (0-40); Blood Urea Nitrogen 22 mg/dL (6-20); Calcium 8.9 mg/dL (8.5-10.5); Carbon Dioxide 24 mmol/L (22-29); Chloride 101 mmol/L (98-107); Glomerular Filtration Rate 120.4 mL/min (90-130); Glucose 157 mg/dL (65-115); Osmolality Calculated 293 mOsm/kg (285-295); Potassium 4.2 mmol/L (3.5-5.1); Sodium 138 mmol/L (136-145); Total Bilirubin 0.9 mg/dL (0.15-1.2); Total Protein 6.5 g/dL (6.6-8.7)
[2021-03-21 03:56] LABS: C Reactive Protein 17.6 mg/L (0.0-4.9)
[2021-03-21 04:08] LABS: Ferritin 1981 ng/mL (30-400)
[2021-03-21 04:15] LABS: D Dimer >= 20.00 ug/mIFEU (0-0.59)
[2021-03-21 04:17] LABS: Slide Review Slide Review Perform
[2021-03-21] MEDS: famotidine 20 mg/2 mL INJ IVP ×2 (05:38→17:58)
[2021-03-21] MEDS: budesonide 0.5 mg/2 mL Neb INHALATION ×2 (07:51→19:57)
[2021-03-21 07:53] LABS: Glucose Point of Care 104 mg/dL (70-110)
[2021-03-21] MEDS: benzonatate 100 mg Capsule PO ×3 (08:07→20:08)
[2021-03-21] MEDS: fluticasone nasal spray 16gm Btl 2 SPRAY NASAL ×2 (08:07→18:02)
[2021-03-21] MEDS: nystatin 100,000 unit/mL UDC 5 mL 100000 UNIT PO ×4 (08:07→20:09)
[2021-03-21] MEDS: ascorbic acid 500 mg Tablet PO ×2 (08:07→18:00)
[2021-03-21] MEDS: apixaban 5 mg Tablet PO (08:09)
[2021-03-21] MEDS: zinc gluconate 50 mg Tablet PO (08:44)
[2021-03-21] MEDS: fluoxetine 20 mg Capsule PO (08:44)
--- NOTE | 2021-03-21 08:53 | PC.NURSE ---
Patient refused SCDs because they make him hot. Patient on eliquis PO.
[2021-03-21] MEDS: fluconazole 100 mg Tablet PO (09:32)
[2021-03-21] MEDS: FUROsemide 10 mg/mL SDV 4mL 40 MG IVP (11:00)
[2021-03-21 11:13] LABS: Glucose Point of Care 156 mg/dL (70-110)
[2021-03-21] MEDS: insulin lispro 100 unit/1 mL SUBCUT ×2 (11:54→20:08)
[2021-03-21] MEDS: acetaminophen 325 mg Tablet 650 MG PO (14:44)
[2021-03-21] MEDS: ALPRAZolam 0.5 mg Tablet PO ×2 (14:44→20:10)
--- NOTE | 2021-03-21 16:00 | PM.PN ---
Subjective Subjective: Interval history: No acute events overnight. Patient states today morning that he is feeling a lot better than before. Working well with I-S and Acapella. Saturations mostly has remained between high 80s to low 90s. Able to turn down oxygen supplementation. Currently on examination has been turned down to 30 L 50% with saturation around 88. Plan is to turn on oxygen supplementation even further keeping saturation over 88%. Has remained afebrile and hemodynamically stable. Medications: Reviewed: Yes Vitals/I&O/Wt Last Vital Signs Temp 97.4 F L 03/21/21 11:00 Pulse 92 03/21/21 15:30 Resp 20 H 03/21/21 15:30 BP 101/57 03/21/21 15:30 Pulse Ox 86 L 03/21/21 15:30 03/21/21 03/21/21 03/21/21 06:59 14:59 22:59 Intake Total 300 / 1300 340 / 340 715 / 1055 Output Total 350 / 2000 1400 / 1400 Balance -50 / -700 -1060 / -1060 715 / -345 Weight last 48 hrs Weight 93.95 kg Weight 92.986 kg Physical Exam Narrative: EXAM NARRATIVE: General: No acute distress, AO x3 HEENT: PERRLA, pupils bilaterally equal and reactive Chest: Bilateral extensive bronchial breath sounds, coarse crackles present all over the lung qureshi, equal good air entry bilaterally CVS: S1-S2 regular, no murmurs, no tachycardia, no gallops, no rubs Abdomen: Soft, nontender, no organomegaly, bowel sounds present Neuro: No focal deficits, no facial deformity, AO x3, power 5/5 in all limbs Urinary Catheter Management^: Hung: Cath Placed During This Visit: yes Reason for Continuing Indwelling Catheter: Accurate Measurement of Urinary Output in Critically Ill Patients Urinary Catheter Date of Insertion: 03/18/21 Urinary Catheter Time of Insertion: 23:45 Data : 03/21/21 03:00 03/21/21 03:00 Micro: Microbiology 03/20/21 14:05 Gram Stain - Final Sputum - Expectorated Sputum Sputum Culture - Preliminary Yeast 03/15/21 20:43 Blood Culture - Final Blood NO GROWTH AFTER 5 DAYS 03/15/21 17:18 Blood Culture - Final Blood NO GROWTH AFTER 5 DAYS A&P Assessment and plan (1) ARDS (adult respiratory distress syndrome): Status: Acute (2) Pneumonia due to 2019-nCoV: Status: Acute (3) HTN (hypertension): Status: Acute (4) Elevated d-dimer: Status: Acute Additional A&P Information ARDS secondary to COVID-19 pneumonia: Severe disease. Oxygen supplementation keeping saturation over 88%. Post Actemra on 03/17 Dexamethasone 6 mg daily. Remdesivir to finish a 5-day course. Last dose 03/20 Vitamin C, zinc. DuoNebs every 4 hour, budesonide twice daily. Aggressive pulmonary toilet with incentive spirometry flutter valve. Proning to semiprone when possible. We will monitor inflammatory markers including ferritin, ESR, CRP, D-dimer, fibrinogen. Trending today. Inflammatory markers continue to improve. Ferritin trending down, CRP down to 17 from more than 300 on admission CTA negative for pulmonary embolism. D-dimer more than 20 today. Switch from Eliquis 5 mg twice daily to full dose Lovenox 1 mg/kg body weight every 12 hourly. Will monitor for anemia or blood loss. Blood cultures so far negative, urine Legionella, bacterial antigen negative, MRSA negative. Pro-Leon elevated. Sputum culture consistent with yeast. Fluconazole 100 mg daily for 7 days, nystatin swish and swallow. C/w imipenem with last dose on 03/22. Given hypoxia will try to keep patient as negative as possible. Echocardiogram shows an EF of 50% with normal diastolic function, mild to moderate MR with normal right ventricular pressures. Plan for net -1 L the next 24 hours. Repeat Lasix during the day today if patient remains hemodynamically stable. Monitor renal functions. Strict input output charting, daily weights. Appreciate Pulmonology recs. Hypertension: Goal of excellent less than 140/90 mmHg. Blood pressure stable for now. Hold off antihypertensives. Type 2 diabetes mellitus: New diagnosis. HbA1c 6.2. Start insulin sliding scale at low-dose protocol as patient will be on steroids as well. Will uptitrate insulin as per daily requirements. Anxiety: Most likely secondary to hypoxia, COVID-19. Decrease dose of Prozac from 40 to 20 mg Mechanical soft carb consistent diet. Protonix OPD prophylaxis. Eliquis will help with DVT prophylaxis as well. Guarded prognosis. Plan for day: Continue with aggressive pulmonary toilet, proning when possible, weaning oxygen keeping saturation over 88%. Lasix 40 mg IV. Switch from Eliquis to full dose Lovenox. Attestations Medical Necessity Statement*: Requires further hospitalization for management of ARDS secondary to COVID-19 pneumonia Critical Care Time: The high probability of a clinically significant, sudden or life threatening deterioration of the patient's [pulmonary] system(s) required my full and direct attention, intervention and personal management. The critical care time is as shown. This time is in addition to time spent performing any reported procedures but includes the following: [x] Data and vital sign review and interpretation [x] Patient assessment, examination and intervention [x] Documentation [x] Medication orders and management Critical Care Time (min): 90 Coding Level of Care Code Acute Glucose And Syrup Weigher for [facility] Fwd Diagnoses ARDS (adult respiratory distress syndrome) J80 Pneumonia due to 2019-nCoV U07.1; J12.82 HTN (hypertension) I10 Elevated d-dimer R79.89
--- NOTE | 2021-03-21 17:15 | PC.NURSE ---
Addendum entered by J CARLOS Martino 03/21/21 18:32: 10L NC. Original Note: Shift Note Frequent safety and comfort rounds continue. Orders and/or nursing care completed as indicated. Patient monitored for response to intervention and treatment(s). Education provided includes SI use and acapella use, new medication education on Lovenox injections, nasal cannula education, activity education. Patient verbalized understanding of teachings. Patient is currently on NC 30L and is sating at 88%. Patient is AOX3.Patient reported pain in his back that was relieved with Tylenol.
[2021-03-21 17:17] LABS: Glucose Point of Care 126 mg/dL (70-110)
[2021-03-21] MEDS: dexamethasone 4 mg/mL INJ 6 MG IVP (17:59)
[2021-03-21] MEDS: enoxaparin 100 mg/mL Syringe 90 MG SUBCUT (18:00)
--- NOTE | 2021-03-21 18:58 | PC.NURSE ---
All chart from 0700 to 1800 by Terrie Mcfadden reviewed and confirmed.
[2021-03-21 19:07] LABS: Glucose Point of Care 165 mg/dL (70-110)
[2021-03-21] MEDS: donepezil 5 MG Tablet 10 MG PO (20:09)
[2021-03-22] VITALS (55 sets, daily range): BP systolic 97–145; BP diastolic 48–99; PULSE 65–101; RESP 15–32; TEMP 36.3–36.8; O2SAT 83–96
[2021-03-22 04:27] LABS: Hematocrit 41.3 % (42.0-52.0); Hemoglobin 13.7 g/dL (11.7-16.6); Mean Corpuscular HGB Conc 33.2 g/dL (30.0-36.0); Mean Corpuscular Hemoglobin 29.8 pg (28.0-34.0); Mean Corpuscular Volume 89.8 fl (80-94); Mean Platelet Volume 9.2 fL (7.4-10.4); Platelet Count 388 10^3/cmm (130-400); Red Cell Distribution Width 12.8 % (12.1-15.1)
[2021-03-22 05:01] LABS: Alanine Aminotransferase 51 U/L (0-41); Albumin Level 3.6 g/dL (3.5-5.2); Alkaline Phosphatase 121 IU/L (40-130); Aspartate Amino Transferase 21 U/L (0-40); Blood Urea Nitrogen 23 mg/dL (6-20); Calcium 8.9 mg/dL (8.5-10.5); Carbon Dioxide 21 mmol/L (22-29); Chloride 103 mmol/L (98-107); Globulin 2.8 g/dL (1.3-4.6); Glomerular Filtration Rate 143.8 mL/min (90-130); Glucose 155 mg/dL (65-115); Osmolality Calculated 297 mOsm/kg (285-295); Sodium 140 mmol/L (136-145); Total Bilirubin 0.8 mg/dL (0.15-1.2); Total Protein 6.4 g/dL (6.6-8.7)
[2021-03-22] MEDS: ipratropium-albuterol 3 mL Neb INHALATION ×6 (05:02→23:08)
[2021-03-22 05:08] LABS: C Reactive Protein 8.7 mg/L (0.0-4.9)
[2021-03-22] MEDS: famotidine 20 mg/2 mL INJ IVP ×2 (05:09→17:41)
[2021-03-22 05:41] LABS: Absolute Eosinophils 0.1 10^3/cmm (0.0-0.7); Absolute Neutrophil 15.6 10^3/cmm (1.4-6.5); Absolute Segmented Neutrophil 14.8 10/cmm (1.6-7.1); Band Neutrophils Absolute 0.9 10^3/cmm (0.0-1.2); Eosinophils 1 %; Lymphocytes 5 %; Lymphocytes Absolute 0.9 10^3/cmm (1.2-3.4); Monocytes Absolute 0.3 10^3/cmm (0.1-0.6); Platelet Estimate Normal (Normal); Segmented Neutrophils 87 %; Slide Review Slide Review Perform; Total Cells Counted 100 (0-100)
[2021-03-22 05:50] LABS: Ferritin 1775 ng/mL (30-400)
[2021-03-22 05:53] LABS: Anion Gap 20.6 (5-19); Potassium 4.6 mmol/L (3.5-5.1)
[2021-03-22 07:54] LABS: Glucose Point of Care 121 mg/dL (70-110)
[2021-03-22] MEDS: ascorbic acid 500 mg Tablet PO ×2 (08:30→17:41)
[2021-03-22] MEDS: enoxaparin 100 mg/mL Syringe 90 MG SUBCUT ×2 (08:30→17:56)
[2021-03-22] MEDS: fluconazole 100 mg Tablet PO (08:30)
[2021-03-22] MEDS: fluoxetine 20 mg Capsule PO (08:30)
[2021-03-22] MEDS: zinc gluconate 50 mg Tablet PO (08:30)
[2021-03-22] MEDS: nystatin 100,000 unit/mL UDC 5 mL 100000 UNIT PO ×4 (08:30→20:08)
[2021-03-22] MEDS: benzonatate 100 mg Capsule PO ×3 (08:30→20:08)
[2021-03-22] MEDS: fluticasone nasal spray 16gm Btl 2 SPRAY NASAL ×2 (08:39→17:57)
[2021-03-22] MEDS: budesonide 0.5 mg/2 mL Neb INHALATION ×2 (08:57→19:54)
[2021-03-22] MEDS: FUROsemide 40 mg Tablet PO (09:22)
--- NOTE | 2021-03-22 09:32 | PC.CHAP ---
Pastoral Care Encounter/Spiritual Assessment Type of Contact [] Declined post office markup clerk visit [] Patient/Family/Request visit [] Outpatient visit [] Follow-up visit [] Physician referral [] Code/Alert [x] Routine visit [] Staff referral [] Actively dying [] Patient sleeping [] Family support [] [] Out of room [] Palliative care [] [x] Receiving care in room [] Pre-surgical visit [] Trauma [] Long length of stay [x] ICU visit [x] Other: sitting in chair having breakfast Relational/Emotional Strength [] Patient feels connected with others/family/visitors/staff [] Distress [] Loneliness/isolation [] Abandonment Spirituality of Patient [] Person of Jade [] Attends Restoration of their Jade [] Believes in Prayer [] Reads Bible or Orthodox materials [] There are Spiritual issues to be addressed Substance Abuse Counselor Interventions [x] Prayer [] Active listening [] Non-anxious presence [] Spiritual/emotional support [] Crisis/trauma care [] Spiritual counseling [] Bereavement support [] Provided bereavement packet [] Provided Bible/devotional materials [] Provided toy/stuffed animal, coloring book to patient or family member [] Provided Communion [] Anointing/[place] [] Salvation [x] Completed spiritual assessment [] Other: Impact on Illness or Injury [] Angry [] Fearful [] Anxious [] Often cries [] Exhaustion [] Unable to work [] Unable to attend cheondoism [] Unable to walk/stand [] Unable to read [] Unable to drive [] Unable to eat/drink [] Unable to sleep [] Unable to be with family [] Patient intubated [] Other: Summary Time spent with patient
[2021-03-22 09:38] LABS: Procalcitonin 0.08 ng/mL (0-0.5)
[2021-03-22 10:21] LABS: Erythrocyte Sedimentation Rate 29 mm/hr (0-10)
[2021-03-22 11:45] LABS: Glucose Point of Care 120 mg/dL (70-110)
--- NOTE | 2021-03-22 16:53 | PM.PN ---
Subjective Subjective: Interval history: No acute events overnight. Patient has remained hemodynamically stable and afebrile. Maintaining saturations high 80s to low 90s in 12 to 13 L of high flow nasal cannula. States he is feeling better. Working well with I-S and Acapella and proning whenever in bed. Documented urine output in last 24 hours around 2500 cc Medications: Reviewed: Yes Vitals/I&O/Wt Last Vital Signs Temp 97.8 F 03/22/21 13:00 Pulse 92 03/22/21 16:33 Resp 18 03/22/21 16:33 BP 133/86 03/22/21 16:00 Pulse Ox 91 03/22/21 16:33 03/22/21 03/22/21 03/22/21 06:59 14:59 22:59 Intake Total 375 / 1870 760 / 760 Output Total 850 / 2570 250 / 250 Balance -475 / -700 510 / 510 Weight last 48 hrs Weight 91.49 kg Weight 93.95 kg Weight 92.986 kg Physical Exam Narrative: EXAM NARRATIVE: General: No acute distress, AO x3 HEENT: PERRLA, pupils bilaterally equal and reactive Chest: Bilateral extensive bronchial breath sounds, coarse crackles present all over the lung qureshi, equal good air entry bilaterally CVS: S1-S2 regular, no murmurs, no tachycardia, no gallops, no rubs Abdomen: Soft, nontender, no organomegaly, bowel sounds present Neuro: No focal deficits, no facial deformity, AO x3, power 5/5 in all limbs Urinary Catheter Management^: Hung: Cath Placed During This Visit: yes Reason for Continuing Indwelling Catheter: Accurate Measurement of Urinary Output in Critically Ill Patients Urinary Catheter Date of Insertion: 03/18/21 Urinary Catheter Time of Insertion: 23:45 Data : 03/22/21 03:48 03/22/21 03:48 A&P Assessment and plan (1) ARDS (adult respiratory distress syndrome): Status: Acute (2) Pneumonia due to 2019-nCoV: Status: Acute (3) HTN (hypertension): Status: Acute (4) Elevated d-dimer: Status: Acute Additional A&P Information ARDS secondary to COVID-19 pneumonia: Severe disease. Oxygen supplementation keeping saturation over 88%. Post Actemra on 03/17 Dexamethasone 6 mg daily. Remdesivir to finish a 5-day course. Last dose 03/20 Vitamin C, zinc. DuoNebs every 4 hour, budesonide twice daily. Aggressive pulmonary toilet with incentive spirometry flutter valve. Proning to semiprone when possible. We will monitor inflammatory markers including ferritin, ESR, CRP, D-dimer, fibrinogen. Trending today. Inflammatory markers continue to improve. Ferritin trending down, CRP down to 17 from more than 300 on admission CTA negative for pulmonary embolism. D-dimer more than 20 today. Switch from Eliquis 5 mg twice daily to full dose Lovenox 1 mg/kg body weight every 12 hourly. Will monitor for anemia or blood loss. Blood cultures so far negative, urine Legionella, bacterial antigen negative, MRSA negative. Pro-Leon elevated. Sputum culture consistent with yeast. Fluconazole 100 mg daily for 7 days, nystatin swish and swallow. C/w imipenem with last dose on 03/22. Given hypoxia will try to keep patient as negative as possible. Echocardiogram shows an EF of 50% with normal diastolic function, mild to moderate MR with normal right ventricular pressures. Plan for net -1 L the next 24 hours. Repeat Lasix during the day today if patient remains hemodynamically stable. Monitor renal functions. Strict input output charting, daily weights. Appreciate Pulmonology recs. Hypertension: Goal of excellent less than 140/90 mmHg. Blood pressure stable for now. Hold off antihypertensives. Type 2 diabetes mellitus: New diagnosis. HbA1c 6.2. Start insulin sliding scale at low-dose protocol as patient will be on steroids as well. Will uptitrate insulin as per daily requirements. Anxiety: Most likely secondary to hypoxia, COVID-19. Decrease dose of Prozac from 40 to 20 mg Mechanical soft carb consistent diet. Protonix OPD prophylaxis. Eliquis will help with DVT prophylaxis as well. Guarded prognosis. Plan for day: Continue with aggressive pulmonary toilet, proning when possible, try to wean oxygen supplementation keeping saturation in high 80s to low 90s. Continue with full dose Lovenox. Last dose of antibiotics today. Continue with fluconazole to finish 7-day course. Monitor strict input output. Lasix 40 mg oral. Discharge planning: As patient continues to require high oxygen supplementation though improving patient would benefit from longer term acute facility. Have alerted case management. Will discuss in detail with patient. Attestations Medical Necessity Statement*: Requires further hospitalization for management of ARDS secondary COVID-19 pneumonia Critical Care Time: The high probability of a clinically significant, sudden or life threatening deterioration of the patient's [pulmonary] system(s) required my full and direct attention, intervention and personal management. The critical care time is as shown. This time is in addition to time spent performing any reported procedures but includes the following: [x] Data and vital sign review and interpretation [x] Patient assessment, examination and intervention [x] Documentation [x] Medication orders and management Critical Care Time (min): 90 Coding Level of Care Code Acute Dredge Or Barge Shore Hand for [facility] Fwd Diagnoses ARDS (adult respiratory distress syndrome) J80 Pneumonia due to 2019-nCoV U07.1; J12.82 HTN (hypertension) I10 Elevated d-dimer R79.89
[2021-03-22 17:22] LABS: Glucose Point of Care 113 mg/dL (70-110)
[2021-03-22] MEDS: dexamethasone 4 mg/mL INJ 6 MG IVP (17:41)
--- NOTE | 2021-03-22 18:59 | PC.NURSE ---
Shift Note Frequent safety and comfort rounds continue. Orders and/or nursing care completed as indicated. Patient monitored for response to intervention and treatment(s). Education provided includes SI and flutter valve use, lovenox education, importance of nutrition, and oxygen safety. Patient verbalized understanding of teaching.
[2021-03-22 20:15] LABS: Glucose Point of Care 216 mg/dL (70-110)
[2021-03-22] MEDS: insulin lispro 100 unit/1 mL SUBCUT (20:16)
--- NOTE | 2021-03-22 21:39 | PC.NURSE ---
Patient has scheduled Aricept at [facility] but unsure reason for taking. Clarified with patient that he hasn't taken medication before, but did receive med in past shifts while admitted. Will ask day shift to follow up with provider in AM for reason behind med.
[2021-03-23] VITALS (51 sets, daily range): BP systolic 84–126; BP diastolic 49–83; PULSE 61–99; RESP 12–26; TEMP 36.3–36.6; O2SAT 85–97; BMI 29.4
[2021-03-23] MEDS: ipratropium-albuterol 3 mL Neb INHALATION ×5 (03:08→19:52)
--- NOTE | 2021-03-23 06:00 | XRR_ITS ---
PROCEDURE INFORMATION: Exam: XR Chest Exam date and time: 03/23/2021 6:00 AM Age: 50 years old Clinical indication: Dyspnea; Additional info: Covid TECHNIQUE: Imaging protocol: XR of the chest. Views: 1 view. COMPARISON: CR (CHEST, ) 03/20/2021 5:00 AM FINDINGS: Lungs: Persistent bilateral airspace opacities. No large pleural effusion or pneumothorax. Pleural spaces: See Lungs finding. Heart/Mediastinum: Stable cardiomediastinal silhouette. Bones/joints: No acute osseous injury identified. XR/XR chest 1V portable 13629 IMPRESSION: Persistent bilateral airspace opacities. Radiation Dose CTDIVOL = (mGy): DLP = (mGy-cm)
[2021-03-23] MEDS: enoxaparin 100 mg/mL Syringe 90 MG SUBCUT ×2 (06:05→18:09)
[2021-03-23] MEDS: famotidine 20 mg/2 mL INJ IVP ×2 (06:05→18:09)
--- NOTE | 2021-03-23 06:19 | PC.NURSE ---
Shift Note Uneventful shift. Patient remains on 13L HFNC. Self proned overnight. Good uop. No c/o pain or discomfort. Frequent safety and comfort rounds continue. Orders and/or nursing care completed as indicated. Patient monitored for response to intervention and treatment(s). Education provided includes breathing tx, medications, overall POC. Patient and/or advertising account representative receptive of teaching. Will continue to monitor.
[2021-03-23 06:23] LABS: Alanine Aminotransferase 53 U/L (0-41); Albumin Level 3.7 g/dL (3.5-5.2); Alkaline Phosphatase 127 IU/L (40-130); Anion Gap 16.7 (5-19); Aspartate Amino Transferase 22 U/L (0-40); Blood Urea Nitrogen 22 mg/dL (6-20); C Reactive Protein 5.2 mg/L (0.0-4.9); Calcium 9.2 mg/dL (8.5-10.5); Carbon Dioxide 23 mmol/L (22-29); Chloride 104 mmol/L (98-107); Globulin 2.8 g/dL (1.3-4.6); Glomerular Filtration Rate 177.5 mL/min (90-130); Glucose 138 mg/dL (65-115); Osmolality Calculated 294 mOsm/kg (285-295); Potassium 4.7 mmol/L (3.5-5.1); Sodium 139 mmol/L (136-145); Total Bilirubin 0.9 mg/dL (0.15-1.2); Total Protein 6.5 g/dL (6.6-8.7)
[2021-03-23 06:32] LABS: D Dimer 11.21 ug/mIFEU (0-0.59)
[2021-03-23 07:55] LABS: Glucose Point of Care 110 mg/dL (70-110)
[2021-03-23 07:58] LABS: Basophils # 0.2 10^3/uL (0.0-0.1); Basophils % 0.7 %; Eosinophils # 0.1 10^3/uL (0.0-0.8); Eosinophils % 0.3 %; Hematocrit 42.8 % (42.0-52.0); Hemoglobin 14.3 g/dL (11.7-16.6); Lymphocytes # 1.1 10^3/uL (0.8-4.8); Lymphocytes % 5.1 %; Mean Corpuscular HGB Conc 33.4 g/dL (30.0-36.0); Mean Corpuscular Hemoglobin 29.8 pg (28.0-34.0); Mean Corpuscular Volume 89.2 fl (80-94); Mean Platelet Volume 9.3 fL (7.4-10.4); Monocytes # 0.9 10^3/uL (0.2-0.9); Neutrophils # 17.68 10^3/uL (1.8-7.7); Neutrophils % 80.3 %; Nucleated Red Blood Cells % 0 %; Platelet Count 381 10^3/cmm (130-400); Red Cell Distribution Width 12.7 % (12.1-15.1)
[2021-03-23 08:20] LABS: Slide Review Slide Review Perform
[2021-03-23] MEDS: budesonide 0.5 mg/2 mL Neb INHALATION ×2 (09:08→19:52)
[2021-03-23] MEDS: nystatin 100,000 unit/mL UDC 5 mL 100000 UNIT PO ×4 (09:09→20:32)
[2021-03-23] MEDS: fluticasone nasal spray 16gm Btl 2 SPRAY NASAL ×2 (09:10→18:16)
[2021-03-23] MEDS: ascorbic acid 500 mg Tablet PO ×2 (09:10→18:09)
[2021-03-23] MEDS: benzonatate 100 mg Capsule PO ×3 (09:10→20:32)
[2021-03-23] MEDS: fluoxetine 20 mg Capsule PO (09:10)
[2021-03-23] MEDS: fluconazole 100 mg Tablet PO (09:10)
[2021-03-23] MEDS: zinc gluconate 50 mg Tablet PO (09:10)
[2021-03-23 09:51] LABS: Erythrocyte Sedimentation Rate 6 mm/hr (0-10)
[2021-03-23 11:51] LABS: Glucose Point of Care 126 mg/dL (70-110)
--- NOTE | 2021-03-23 17:14 | P.PN_ITS ---
Subjective Subjective: Interval history: Patient continues to do well. Has remained hemodynamically stable and afebrile. On examination on 10 L high flow nasal cannula saturating 92%. Working well with I-S and Acapella. During pulmonary toilet saturation goes down to 85%. Patient remains asymptomatic. Is able to prone when in bed. Documented urine output in last 24 hours 1700 cc. Medications: Reviewed: Yes Vitals/I&O/Wt Last Vital Signs Temp 97.9 F 03/23/21 08:00 Pulse 87 03/23/21 16:09 Resp 16 03/23/21 16:05 BP 120/59 03/23/21 16:00 Pulse Ox 91 03/23/21 16:05 03/23/21 03/23/21 03/23/21 06:59 14:59 22:59 Intake Total 180 / 1660 600 / 600 220 / 820 Output Total 1000 / 1700 Balance -820 / -40 600 / 600 220 / 820 Weight last 48 hrs Weight 92.986 kg Weight 91.49 kg Physical Exam Narrative: EXAM NARRATIVE: General: No acute distress, AO x3 HEENT: PERRLA, pupils bilaterally equal and reactive Chest: Bilateral extensive bronchial breath sounds, coarse crackles present all over the lung qureshi, equal good air entry bilaterally CVS: S1-S2 regular, no murmurs, no tachycardia, no gallops, no rubs Abdomen: Soft, nontender, no organomegaly, bowel sounds present Neuro: No focal deficits, no facial deformity, AO x3, power 5/5 in all limbs Urinary Catheter Management^: Hung: Cath Placed During This Visit: yes Reason for Continuing Indwelling Catheter: Accurate Measurement of Urinary Output in Critically Ill Patients Urinary Catheter Date of Insertion: 03/18/21 Urinary Catheter Time of Insertion: 23:45 Data : 03/23/21 05:38 03/23/21 05:38 Micro: Microbiology 03/23/21 11:15 C.difficile Toxin B Gene (PCR) - Final Stool Routine Collection 03/20/21 14:05 Gram Stain - Final Sputum - Expectorated Sputum Sputum Culture - Final Frieda albicans A&P Assessment and plan (1) ARDS (adult respiratory distress syndrome): Status: Acute (2) Pneumonia due to 2019-nCoV: Status: Acute (3) HTN (hypertension): Status: Acute (4) Elevated d-dimer: Status: Acute Additional A&P Information ARDS secondary to COVID-19 pneumonia: Severe disease. Oxygen supplementation keeping saturation over 88%. Post Actemra on 03/17 Dexamethasone 6 mg daily. Remdesivir to finish a 5-day course. Last dose 03/20 Vitamin C, zinc. DuoNebs every 4 hour, budesonide twice daily. Aggressive pulmonary toilet with incentive spirometry flutter valve. Proning to semiprone when possible. We will monitor inflammatory markers including ferritin, ESR, CRP, D-dimer, fibrinogen. Trending today. Inflammatory markers continue to improve. Ferritin trending down, CRP down to 17 from more than 300 on admission CTA negative for pulmonary embolism. D-dimer elevated but trending down again. Continue with full dose Lovenox 1 mg/kg body weight q 12 hourly. Will monitor for anemia or blood loss. Blood cultures so far negative, urine Legionella, bacterial antigen negative, MRSA negative. Pro-Leon elevated. Sputum culture consistent Frieda albicans . Fluconazole 100 mg daily for 7 days, nystatin swish and swallow. C/w imipenem with last dose on 03/22. Given hypoxia will try to keep patient as negative as possible. Echocardiogram shows an EF of 50% with normal diastolic function, mild to moderate MR with normal right ventricular pressures. Plan for net -1 L the next 24 hours. Repeat Lasix during the day today if patient remains hemodynamically stable. Monitor renal functions. Strict input output charting, daily weights. Appreciate Pulmonology recs. Hypertension: Goal of excellent less than 140/90 mmHg. Blood pressure stable for now. Hold off antihypertensives. Type 2 diabetes mellitus: New diagnosis. HbA1c 6.2. Start insulin sliding scale at low-dose protocol as patient will be on steroids as well. Will uptitrate insulin as per daily requirements. Anxiety: Most likely secondary to hypoxia, COVID-19. Continue Prozac at 20 mg daily. Mechanical soft carb consistent diet. Protonix OPD prophylaxis. Eliquis will help with DVT prophylaxis as well. Guarded prognosis. Plan for day: Continue with aggressive pulmonary toilet, proning when possible, try to wean oxygen supplementation keeping saturation in high 80s to low 90s. Continue with full dose Lovenox. Last dose of antibiotics today. Continue with fluconazole to finish 7-day course. Monitor strict input output. Discharge planning: Spoke with patient detail regarding further discharge planning regarding him required aggressive pulmonary rehabitation going forward. Patient verbalized understanding. He is agreeable for LTAC. Has alerted case management for the same. Attestations Medical Necessity Statement*: Requires further hospitalization for management of ARDS secondary COVID-19 pneumonia while safe discharge planning was sought Time Spent in Patient Care: Greater than 35 minutes (>than 50% of time spent in counselling and/or direct pt care on unit) . 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 Diagnoses ARDS (adult respiratory distress syndrome) J80 Pneumonia due to 2019-nCoV U07.1; J12.82 HTN (hypertension) I10 Elevated d-dimer R79.89
[2021-03-23 17:17] LABS: Glucose Point of Care 106 mg/dL (70-110)
[2021-03-23] MEDS: dexamethasone 4 mg/mL INJ 6 MG IVP (18:09)
--- NOTE | 2021-03-23 18:45 | PC.NURSE ---
Shift Note Frequent safety and comfort rounds continue. Orders and/or nursing care completed as indicated. Patient monitored for response to intervention and treatment(s). Education provided includes oxygen safety and education, medication education at administration, and importance of ambulation. Patient verbalized understanding of education. Will continue to monitor.
[2021-03-23 20:12] LABS: Glucose Point of Care 202 mg/dL (70-110)
[2021-03-23] MEDS: donepezil 5 MG Tablet 10 MG PO (20:32)
[2021-03-23] MEDS: ALPRAZolam 0.5 mg Tablet PO (20:32)
[2021-03-23] MEDS: insulin lispro 100 unit/1 mL SUBCUT (20:33)
--- NOTE | 2021-03-23 22:04 | PC.NURSE ---
Report given to forest manager, transported to [facility] with belongings
[2021-03-24] VITALS (19 sets, daily range): BP systolic 97–124; BP diastolic 62–74; PULSE 74–95; RESP 17–22; TEMP 36.4–37.1; O2SAT 86–95; BMI 29.4
[2021-03-24] MEDS: ipratropium-albuterol 3 mL Neb INHALATION ×6 (00:43→20:32)
[2021-03-24 06:29] LABS: Glucose Point of Care 133 mg/dL (70-110)
[2021-03-24] MEDS: budesonide 0.5 mg/2 mL Neb INHALATION ×2 (08:00→20:32)
[2021-03-24] MEDS: famotidine 20 mg/2 mL INJ IVP ×2 (08:39→18:12)
[2021-03-24] MEDS: enoxaparin 100 mg/mL Syringe 90 MG SUBCUT ×2 (08:40→18:46)
[2021-03-24] MEDS: ascorbic acid 500 mg Tablet PO ×2 (08:40→18:47)
[2021-03-24] MEDS: benzonatate 100 mg Capsule PO ×3 (08:40→21:39)
[2021-03-24] MEDS: fluconazole 100 mg Tablet PO (08:40)
[2021-03-24] MEDS: nystatin 100,000 unit/mL UDC 5 mL 100000 UNIT PO ×4 (08:41→21:44)
[2021-03-24] MEDS: zinc gluconate 50 mg Tablet PO (08:41)
[2021-03-24] MEDS: fluoxetine 20 mg Capsule PO (08:41)
[2021-03-24 09:45] LABS: Basophils # 0.2 10^3/uL (0.0-0.1); Basophils % 0.6 %; Eosinophils % 0.1 %; Hematocrit 45.9 % (42.0-52.0); Hemoglobin 15.1 g/dL (11.7-16.6); Lymphocytes # 1.5 10^3/uL (0.8-4.8); Lymphocytes % 5.9 %; Mean Corpuscular HGB Conc 32.9 g/dL (30.0-36.0); Mean Corpuscular Hemoglobin 29.5 pg (28.0-34.0); Mean Corpuscular Volume 89.8 fl (80-94); Mean Platelet Volume 9.1 fL (7.4-10.4); Monocytes # 1.1 10^3/uL (0.2-0.9); Monocytes % 4.4 %; Neutrophils # 20.46 10^3/uL (1.8-7.7); Neutrophils % 80.6 %; Nucleated Red Blood Cells % 0.1 %; Platelet Count 487 10^3/cmm (130-400); Red Blood Count 5.11 10^6/uL (4.1-5.3); Red Cell Distribution Width 12.6 % (12.1-15.1); White Blood Count 25.4 10^3/uL (4.0-10.0)
[2021-03-24 09:57] LABS: Alanine Aminotransferase 48 U/L (0-41); Alkaline Phosphatase 116 IU/L (40-130); Anion Gap 18.9 (5-19); Aspartate Amino Transferase 17 U/L (0-40); Blood Urea Nitrogen 24 mg/dL (6-20); Calcium 9.6 mg/dL (8.5-10.5); Carbon Dioxide 22 mmol/L (22-29); Chloride 102 mmol/L (98-107); Globulin 3.3 g/dL (1.3-4.6); Glomerular Filtration Rate 143.8 mL/min (90-130); Glucose 124 mg/dL (65-115); Osmolality Calculated 293 mOsm/kg (285-295); Potassium 3.9 mmol/L (3.5-5.1); Sodium 139 mmol/L (136-145); Total Protein 7.3 g/dL (6.6-8.7)
[2021-03-24 10:13] LABS: Slide Review Slide Review Perform
[2021-03-24] MEDS: fluticasone nasal spray 16gm Btl 2 SPRAY NASAL ×2 (11:01→18:47)
[2021-03-24 12:17] LABS: Glucose Point of Care 142 mg/dL (70-110)
[2021-03-24] MEDS: insulin lispro 100 unit/1 mL SUBCUT ×2 (12:52→21:40)
--- NOTE | 2021-03-24 16:03 | P.PN_ITS ---
Subjective Subjective: Interval history: No acute events overnight. Overnight patient was transferred to [facility]. Today morning on examination sitting up in bed. Saturating in high 80s on 10 L high flow nasal cannula. Working well with I-S and Acapella. Proning when possible. States he is feeling better. Denies any nausea, vomiting, headache. Discussed need to start ambulation as possible. Medications: Reviewed: Yes Vitals/I&O/Wt Last Vital Signs Temp 97.7 F 03/24/21 12:00 Pulse 93 03/24/21 15:48 Resp 18 03/24/21 15:43 BP 111/71 03/24/21 12:00 Pulse Ox 87 L 03/24/21 15:43 03/24/21 03/24/21 03/24/21 06:59 14:59 22:59 Intake Total 20 / 1200 360 / 360 Output Total 1100 / 2200 Balance -1080 / -1000 360 / 360 Weight last 48 hrs Weight 92.986 kg Weight 92.986 kg Physical Exam Narrative: EXAM NARRATIVE: General: No acute distress, AO x3 HEENT: PERRLA, pupils bilaterally equal and reactive Chest: Bilateral extensive bronchial breath sounds, coarse crackles present all over the lung qureshi, equal good air entry bilaterally CVS: S1-S2 regular, no murmurs, no tachycardia, no gallops, no rubs Abdomen: Soft, nontender, no organomegaly, bowel sounds present Neuro: No focal deficits, no facial deformity, AO x3, power 5/5 in all limbs Urinary Catheter Management^: Hung: Cath Placed During This Visit: yes, but has since been removed by the nurse Reason for Continuing Indwelling Catheter: Decision to DC Catheter Urinary Catheter Date of Insertion: 03/18/21 Urinary Catheter Time of Insertion: 23:45 Date Urinary Catheter Removed: 03/24/21 Time Urinary Catheter Discontinued: 11:19 Data : 03/24/21 09:10 03/24/21 09:10 Micro: Microbiology 03/23/21 11:15 C.difficile Toxin B Gene (PCR) - Final Stool Routine Collection 03/20/21 14:05 Gram Stain - Final Sputum - Expectorated Sputum Sputum Culture - Final Frieda albicans A&P Assessment and plan (1) ARDS (adult respiratory distress syndrome): Status: Acute (2) Pneumonia due to 2019-nCoV: Status: Acute (3) HTN (hypertension): Status: Acute (4) Elevated d-dimer: Status: Acute Additional A&P Information ARDS secondary to COVID-19 pneumonia: Severe disease. Oxygen supplementation keeping saturation over 86-88 %. Post Actemra on 03/17 Dexamethasone 6 mg daily to finish a 10-day course. Remdesivir to finish a 5-day course. Last dose 03/20 Vitamin C, zinc. DuoNebs every 4 hour, budesonide twice daily. Aggressive pulmonary toilet with incentive spirometry flutter valve. Proning to semiprone when possible. We will monitor inflammatory markers including ferritin, ESR, CRP, D-dimer, fibrinogen. Trending today. Inflammatory markers continue to improve. Ferritin trending down, CRP down to 17 from more than 300 on admission CTA negative for pulmonary embolism. D-dimer elevated but trending down again. Continue with full dose Lovenox 1 mg/kg body weight q 12 hourly. Will monitor for anemia or blood loss. Blood cultures so far negative, urine Legionella, bacterial antigen negative, MRSA negative. Pro-Leon elevated. Sputum culture consistent Frieda albicans . Fluconazole 100 mg daily for 7 days, nystatin swish and swallow. Finished course with IV antibiotics on March 22. Given hypoxia will try to keep patient as negative as possible. Echocardiogram shows an EF of 50% with normal diastolic function, mild to moderate MR with normal right ventricular pressures. Euvolemic today. Hold off on any IV fluids or diuresis for now. Monitor renal functions. Strict input output charting, daily weights. Appreciate Pulmonology recs. Hypertension: Goal of excellent less than 140/90 mmHg. Blood pressure stable for now. Hold off antihypertensives. Type 2 diabetes mellitus: New diagnosis. HbA1c 6.2. Start insulin sliding scale at low-dose protocol as patient will be on steroids as well. Will uptitrate insulin as per daily requirements. Anxiety: Most likely secondary to hypoxia, COVID-19. Continue Prozac at 20 mg daily. Mechanical soft carb consistent diet. Protonix OPD prophylaxis. Eliquis will help with DVT prophylaxis as well. Guarded prognosis. Plan for day: Continue with aggressive pulmonary toilet, proning when possible, try to wean oxygen supplementation keeping saturation in high 80s to low 90s. Continue with full dose Lovenox. Last dose of antibiotics today. Continue with fluconazole to finish 7-day course. Monitor strict input output. Discharge planning: Spoke with patient again regarding further discharge planning. He was wondering if patient can be transferred to [facility] as one of his friends told him that they have acute pulmonary rehab over there. We discussed that what he needs is long-term acute facility which would only be possible at LTAC versus a possible swing bed. Patient for now wants to continue thinking about the same. Attestations Medical Necessity Statement*: Requires further hospitalization for management of ARDS secondary COVID-19 pneumonia Time Spent in Patient Care: Greater than 35 minutes (>than 50% of time spent in counselling and/or direct pt care on unit) . 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
[2021-03-24 17:15] LABS: Glucose Point of Care 111 mg/dL (70-110)
[2021-03-24] MEDS: dexamethasone 4 mg/mL INJ 6 MG IVP (18:12)
[2021-03-24 20:45] LABS: Glucose Point of Care 224 mg/dL (70-110)
[2021-03-24] MEDS: donepezil 5 MG Tablet 10 MG PO (21:39)
[2021-03-25] VITALS (17 sets, daily range): BP systolic 95–118; BP diastolic 59–71; PULSE 78–96; RESP 16–22; TEMP 36.3–36.8; O2SAT 85–94
[2021-03-25] MEDS: ipratropium-albuterol 3 mL Neb INHALATION ×6 (00:29→19:53)
[2021-03-25 04:28] LABS: C Reactive Protein 2.2 mg/L (0.0-4.9)
[2021-03-25 04:29] LABS: Alanine Aminotransferase 44 U/L (0-41); Albumin Level 3.9 g/dL (3.5-5.2); Alkaline Phosphatase 107 IU/L (40-130); Anion Gap 15.5 (5-19); Aspartate Amino Transferase 18 U/L (0-40); Blood Urea Nitrogen 23 mg/dL (6-20); Calcium 9.1 mg/dL (8.5-10.5); Carbon Dioxide 23 mmol/L (22-29); Chloride 101 mmol/L (98-107); Globulin 2.5 g/dL (1.3-4.6); Glomerular Filtration Rate 143.8 mL/min (90-130); Glucose 163 mg/dL (65-115); Osmolality Calculated 287 mOsm/kg (285-295); Potassium 4.5 mmol/L (3.5-5.1); Sodium 135 mmol/L (136-145); Total Bilirubin 0.9 mg/dL (0.15-1.2); Total Protein 6.4 g/dL (6.6-8.7)
[2021-03-25 05:16] LABS: Hematocrit 43.1 % (42.0-52.0); Hemoglobin 14.3 g/dL (11.7-16.6); Mean Corpuscular HGB Conc 33.2 g/dL (30.0-36.0); Mean Corpuscular Hemoglobin 30.2 pg (28.0-34.0); Mean Corpuscular Volume 90.9 fl (80-94); Mean Platelet Volume 9.5 fL (7.4-10.4); Platelet Count 436 10^3/cmm (130-400); Red Blood Count 4.74 10^6/uL (4.1-5.3); Red Cell Distribution Width 12.7 % (12.1-15.1); White Blood Count 20.6 10^3/uL (4.0-10.0)
--- NOTE | 2021-03-25 06:00 | XR_ITS ---
WS: [id number] Exam: XR chest 1V portable [id number] Date/Time of Exam: 03/25/2021 4:58 AM Reason For Exam: covid Comparison 03/23/2021. Bilateral patchy groundglass infiltrates are noted. There has been partial clearing of the upper left lung since prior study but no other change. Heart size is top limits normal. No pleural effusions or pneumothorax. The mediastinum and osseous thorax are unremarkable. XR/XR chest 1V portable [id number] IMPRESSION: 1. Bilateral pulmonary infiltrates noted. There has been partial clearing of in filtrates in the upper left lung but no other change since prior study.
[2021-03-25] MEDS: enoxaparin 100 mg/mL Syringe 90 MG SUBCUT (06:23)
[2021-03-25 06:36] LABS: Glucose Point of Care 138 mg/dL (70-110)
[2021-03-25] MEDS: famotidine 20 mg/2 mL INJ IVP ×2 (06:36→17:19)
[2021-03-25 07:44] LABS: Slide Review Slide Review Perform
[2021-03-25 07:46] LABS: Absolute Segmented Neutrophil 16.1 10/cmm (1.6-7.1); Band Neutrophils Absolute 0.6 10^3/cmm (0.0-1.2); Eosinophils 0 %; Lymphocytes 12 %; Lymphocytes Absolute 2.5 10^3/cmm (1.2-3.4); Monocytes Absolute 0.4 10^3/cmm (0.1-0.6); Segmented Neutrophils 78 %; Total Cells Counted 100 (0-100)
[2021-03-25 07:48] LABS: Absolute Neutrophil 16.7 10^3/cmm (1.4-6.5); Platelet Estimate Normal (Normal)
[2021-03-25] MEDS: budesonide 0.5 mg/2 mL Neb INHALATION ×2 (08:32→19:53)
[2021-03-25] MEDS: insulin lispro 100 unit/1 mL SUBCUT ×2 (08:45→21:33)
[2021-03-25] MEDS: ascorbic acid 500 mg Tablet PO ×2 (08:45→17:19)
[2021-03-25] MEDS: fluoxetine 20 mg Capsule PO (08:46)
[2021-03-25] MEDS: fluticasone nasal spray 16gm Btl 2 SPRAY NASAL ×2 (08:46→17:19)
[2021-03-25] MEDS: nystatin 100,000 unit/mL UDC 5 mL 100000 UNIT PO ×4 (08:46→20:08)
[2021-03-25] MEDS: zinc gluconate 50 mg Tablet PO (08:46)
[2021-03-25] MEDS: benzonatate 100 mg Capsule PO ×3 (08:46→20:09)
[2021-03-25] MEDS: FUROsemide 40 mg Tablet PO (08:46)
[2021-03-25] MEDS: fluconazole 100 mg Tablet PO (08:46)
--- NOTE | 2021-03-25 09:54 | PM.PN ---
Subjective Subjective: Interval history: Patient was seen and examined this morning no acute events overnight. Currently supplemental oxygen requirement is slowly going down. Was complaining of nasal congestion. Slightly hypotensive. Continue to have robust urine output. His other vitals and labs. Medications: Reviewed: Yes Vitals/I&O/Wt Last Vital Signs Temp 97.4 F L 03/25/21 07:40 Pulse 89 03/25/21 08:44 Resp 16 03/25/21 08:44 BP 95/59 03/25/21 07:40 Pulse Ox 88 L 03/25/21 08:44 03/24/21 03/25/21 03/25/21 22:59 06:59 14:59 Intake Total 600 / 1200 240 / 240 Output Total 400 / 400 Balance 200 / 800 240 / 240 Weight last 48 hrs Weight 92.986 kg Weight 92.986 kg Physical Exam Const: COMMON NORMALS: patient oriented x3 HENMT: COMMON NORMALS: normocephalic and atraumatic HEAD & SCALP: normocephalic and atraumatic Resp: OTHER: Diminished air entry bilaterally Cardio: COMMON NORMALS: regular rate, regular rhythm, S1 normal heart sound present, S2 normal heart sound present, No gallops present (Cardio), No murmurs present (Cardio), No rub (Cardio) and Peripheral pulses 2+ throughout RATE: regular rate RHYTHM: regular rhythm HEART SOUNDS: S1 normal heart sound present and S2 normal heart sound present PERIPHERAL PULSES: Peripheral pulses 2+ throughout GI: COMMON NORMALS: Normal to inspection, nondistended, normoactive bowel sounds present, Soft to palpation, non-tender, No hepatosplenomegaly present and no masses AUSCULTATION: Yes normoactive bowel sounds PALPATION: Yes Soft to palpation and Yes No hepatosplenomegaly present RECTAL EXAM: Yes deferred Extremity: COMMON NORMALS: no clubbing, cyanosis or edema and no pedal edema Neuro: COMMON NORMALS: patient oriented x3 Urinary Catheter Management^: Hung: Cath Placed During This Visit: yes, but has since been removed by the nurse Reason for Continuing Indwelling Catheter: Decision to DC Catheter Urinary Catheter Date of Insertion: 03/18/21 Urinary Catheter Time of Insertion: 23:45 Date Urinary Catheter Removed: 03/24/21 Time Urinary Catheter Discontinued: 11:19 Data : 03/25/21 03:35 03/25/21 03:35 A&P Assessment and plan (1) ARDS (adult respiratory distress syndrome): Status: Acute (2) Pneumonia due to 2019-nCoV: Status: Acute (3) HTN (hypertension): Status: Acute (4) Elevated d-dimer: Status: Acute Additional A&P Information ARDS secondary to COVID-19 pneumonia: Severe disease. Oxygen supplementation keeping saturation over 86-88 %. Post Actemra on 03/17 Dexamethasone 6 mg daily to finish a 10-day course. Remdesivir to finish a 5-day course. Last dose 03/20 Vitamin C, zinc. DuoNebs every 4 hour, budesonide twice daily. Aggressive pulmonary toilet with incentive spirometry flutter valve. Proning to semiprone when possible. We will monitor inflammatory markers including ferritin, ESR, CRP, D-dimer, fibrinogen. Trending today. Inflammatory markers continue to improve. Ferritin trending down, CRP down to 17 from more than 300 on admission CTA negative for pulmonary embolism. D-dimer elevated but trending down again. Initially on full dose Lovenox 1 mg/kg body weight q 12 hourly. Has been switched to prophylactic anticoagulation Blood cultures so far negative, urine Legionella, bacterial antigen negative, MRSA negative. Pro-Leon elevated. Sputum culture consistent Frieda albicans . Fluconazole 100 mg daily for 7 days, nystatin swish and swallow. Finished course with IV antibiotics on March 22. Given hypoxia will try to keep patient as negative as possible. Echocardiogram shows an EF of 50% with normal diastolic function, mild to moderate MR with normal right ventricular pressures. Euvolemic today. Hold off on any IV fluids or diuresis for now. Monitor renal functions. Strict input output charting, daily weights. Appreciate Pulmonology recs. Hypertension: Goal of excellent less than 140/90 mmHg. Blood pressure stable for now. Hold off antihypertensives. Type 2 diabetes mellitus: New diagnosis. HbA1c 6.2. Start insulin sliding scale at low-dose protocol as patient will be on steroids as well. Will uptitrate insulin as per daily requirements. Anxiety: Most likely secondary to hypoxia, COVID-19. Continue Prozac at 20 mg daily. Mechanical soft carb consistent diet. Protonix OPD prophylaxis. DVT prophylaxis: On Lovenox Guarded prognosis. Discharge planning: Spoke with patient again regarding further discharge planning. He was wondering if patient can be transferred to [facility] as one of his friends told him that they have acute pulmonary rehab over there. We discussed that what he needs is long-term acute facility which would only be possible at LTAC versus a possible swing bed. Attestations Medical Necessity Statement*: Patient needs to be in hospital for management of Covid pneumonia. Coding Level of Care Code Acute Compo Caster for [facility] Fwd Diagnoses ARDS (adult respiratory distress syndrome) J80 Pneumonia due to 2019-nCoV U07.1; J12.82 HTN (hypertension) I10 Elevated d-dimer R79.89
[2021-03-25 12:15] LABS: Glucose Point of Care 113 mg/dL (70-110)
[2021-03-25] MEDS: dexamethasone 4 mg/mL INJ 6 MG IVP (17:19)
[2021-03-25 18:01] LABS: Glucose Point of Care 125 mg/dL (70-110)
[2021-03-25] MEDS: donepezil 5 MG Tablet 10 MG PO (20:09)
[2021-03-25 21:30] LABS: Glucose Point of Care 185 mg/dL (70-110)
[2021-03-25] MEDS: ALPRAZolam 0.5 mg Tablet PO (21:34)
[2021-03-26] VITALS (18 sets, daily range): BP systolic 102–130; BP diastolic 63–74; PULSE 77–102; RESP 17–20; TEMP 36.3–37.1; O2SAT 87–95
[2021-03-26] MEDS: ipratropium-albuterol 3 mL Neb INHALATION ×6 (00:19→19:55)
[2021-03-26] MEDS: famotidine 20 mg/2 mL INJ IVP ×2 (06:01→17:42)
[2021-03-26 06:56] LABS: Glucose Point of Care 138 mg/dL (70-110)
[2021-03-26] MEDS: budesonide 0.5 mg/2 mL Neb INHALATION ×2 (07:57→19:55)
[2021-03-26] MEDS: enoxaparin 40 mg/0.4 mL Syringe SUBCUT (10:19)
[2021-03-26] MEDS: zinc gluconate 50 mg Tablet PO (10:19)
[2021-03-26] MEDS: fluconazole 100 mg Tablet PO (10:19)
[2021-03-26] MEDS: fluoxetine 20 mg Capsule PO (10:20)
[2021-03-26] MEDS: ascorbic acid 500 mg Tablet PO ×2 (10:20→17:41)
[2021-03-26] MEDS: nystatin 100,000 unit/mL UDC 5 mL 100000 UNIT PO ×4 (10:20→21:29)
[2021-03-26] MEDS: benzonatate 100 mg Capsule PO ×3 (10:24→21:28)
--- NOTE | 2021-03-26 10:29 | PC.CHAP ---
Pastoral Care Encounter/Spiritual Assessment Type of Contact [] Declined risk compliance analyst visit [] Patient/Family/Request visit [] Outpatient visit [] Follow-up visit [] Physician referral [] Code/Alert [x] Routine visit [x] Staff referral [] Actively dying [] Patient sleeping [] Family support [] [] Out of room [] Palliative care [] [] Receiving care in room [] Pre-surgical visit [] Trauma [] Long length of stay [] ICU visit [] Other: Relational/Emotional Strength [x] Patient feels connected with others/family/visitors/staff [] Distress [] Loneliness/isolation [] Abandonment Spirituality of Patient [x] Person of Jade [x] Attends Religious of their Jade [x] Believes in Prayer [] Reads Bible or Mu-Ism materials [] There are Spiritual issues to be addressed 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 Interventions [x] Prayer [x] Active listening [x] Non-anxious presence [x] Spiritual/emotional support [] Crisis/trauma care [x] Spiritual counseling [] Bereavement support [] Provided bereavement packet [] Provided Bible/devotional materials [] Provided toy/stuffed animal, coloring book to patient or family member [] Provided Communion [] Anointing/[place] [] Salvation [x] Completed spiritual assessment [] Other: Impact on Illness or Injury [] Angry [] Fearful [] Anxious [] Often cries [] Exhaustion [] Unable to work [] Unable to attend jehovah's witness [] Unable to walk/stand [] Unable to read [] Unable to drive [] Unable to eat/drink [] Unable to sleep [] Unable to be with family [] Patient intubated [] Other: Summary Time spent with patient
[2021-03-26 11:04] LABS: Glucose Point of Care 112 mg/dL (70-110)
--- NOTE | 2021-03-26 14:44 | P.PN_ITS ---
Subjective Subjective: Interval history: Patient was seen and examined this morning no acute events overnight. SOB has improved a lot,saturating well on 3ls. Medications: Reviewed: Yes Vitals/I&O/Wt Last Vital Signs Temp 97.4 F L 03/26/21 11:34 Pulse 95 03/26/21 11:34 Resp 18 03/26/21 11:34 BP 110/70 03/26/21 11:34 Pulse Ox 91 03/26/21 11:34 03/25/21 03/26/21 03/26/21 22:59 06:59 14:59 Intake Total 240 / 480 450 / 930 Output Total 900 / 2000 500 / 2500 Balance -660 / -1520 -50 / -1570 Weight last 48 hrs Weight 96.729 kg Physical Exam Const: COMMON NORMALS: patient oriented x3 HENMT: COMMON NORMALS: normocephalic and atraumatic HEAD & SCALP: normocephalic and atraumatic Resp: COMMON NORMALS: normal respiratory effort and clear to auscultation bilaterally AUSCULTATION: clear to auscultation bilaterally Cardio: COMMON NORMALS: regular rate, regular rhythm, S1 normal heart sound present, S2 normal heart sound present, No gallops present (Cardio), No murmurs present (Cardio), No rub (Cardio) and Peripheral pulses 2+ throughout RATE: regular rate RHYTHM: regular rhythm HEART SOUNDS: S1 normal heart sound present and S2 normal heart sound present PERIPHERAL PULSES: Peripheral pulses 2+ throughout GI: COMMON NORMALS: Normal to inspection, nondistended, normoactive bowel sounds present, Soft to palpation, non-tender, No hepatosplenomegaly present and no masses AUSCULTATION: Yes normoactive bowel sounds PALPATION: Yes Soft to palpation and Yes No hepatosplenomegaly present RECTAL EXAM: Yes deferred Extremity: COMMON NORMALS: no clubbing, cyanosis or edema and no pedal edema Neuro: COMMON NORMALS: patient oriented x3 Urinary Catheter Management^: Hung: Cath Placed During This Visit: yes, but has since been removed by the nurse Reason for Continuing Indwelling Catheter: Decision to DC Catheter Urinary Catheter Date of Insertion: 03/18/21 Urinary Catheter Time of Insertion: 23:45 Date Urinary Catheter Removed: 03/24/21 Time Urinary Catheter Discontinued: 11:19 Data : 03/25/21 03:35 03/25/21 03:35 A&P Assessment and plan (1) ARDS (adult respiratory distress syndrome): Status: Acute (2) Pneumonia due to 2019-nCoV: Status: Acute (3) HTN (hypertension): Status: Acute (4) Elevated d-dimer: Status: Acute Additional A&P Information ARDS secondary to COVID-19 pneumonia: Severe disease. Oxygen supplementation keeping saturation over 86-88 %. Post Actemra on 03/17 Dexamethasone 6 mg daily to finish a 10-day course. Remdesivir to finish a 5-day course. Last dose 03/20 Vitamin C, zinc. DuoNebs every 4 hour, budesonide twice daily. Aggressive pulmonary toilet with incentive spirometry flutter valve. Proning to semiprone when possible. We will monitor inflammatory markers including ferritin, ESR, CRP, D-dimer, fibrinogen. Trending today. Inflammatory markers continue to improve. Ferritin trending down, CRP down to 17 from more than 300 on admission CTA negative for pulmonary embolism. D-dimer elevated but trending down again. Initially on full dose Lovenox 1 mg/kg body weight q 12 hourly. Has been switched to prophylactic anticoagulation Blood cultures so far negative, urine Legionella, bacterial antigen negative, MRSA negative. Pro-Leon elevated. Sputum culture consistent Frieda albicans . Fluconazole 100 mg daily for 7 days, nystatin swish and swallow. Finished course with IV antibiotics on March 22. Given hypoxia will try to keep patient as negative as possible. Echocardiogram shows an EF of 50% with normal diastolic function, mild to moderate MR with normal right ventricular pressures. Euvolemic today. Hold off on any IV fluids or diuresis for now. Monitor renal functions. Strict input output charting, daily weights. Appreciate Pulmonology recs. Hypertension: Goal of excellent less than 140/90 mmHg. Blood pressure stable for now. Hold off antihypertensives. Type 2 diabetes mellitus: New diagnosis. HbA1c 6.2. Start insulin sliding scale at low-dose protocol as patient will be on steroids as well. Will uptitrate insulin as per daily requirements. Anxiety: Most likely secondary to hypoxia, COVID-19. Continue Prozac at 20 mg daily. Mechanical soft carb consistent diet. Protonix OPD prophylaxis. DVT prophylaxis: On Lovenox Guarded prognosis. Discharge planning: Spoke with patient again regarding further discharge planning. He was wondering if patient can be transferred to [facility] as one of his friends told him that they have acute pulmonary rehab over there. We discussed that what he needs is long-term acute facility which would only be possible at LTAC versus a possible swing bed. Attestations Medical Necessity Statement*: Patient needs to be in the hospital for management of Covid pneumonia. 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
[2021-03-26 17:10] LABS: Glucose Point of Care 98 mg/dL (70-110)
[2021-03-26 20:54] LABS: Glucose Point of Care 151 mg/dL (70-110)
[2021-03-26] MEDS: donepezil 5 MG Tablet 10 MG PO (21:28)
[2021-03-26] MEDS: insulin lispro 100 unit/1 mL SUBCUT (21:29)
[2021-03-27] VITALS (13 sets, daily range): BP systolic 101–126; BP diastolic 66–72; PULSE 80–105; RESP 16–22; TEMP 36.4–36.8; O2SAT 82–93
[2021-03-27] MEDS: ipratropium-albuterol 3 mL Neb INHALATION ×5 (00:26→20:21)
[2021-03-27 05:18] LABS: Basophils # 0.1 10^3/uL (0.0-0.1); Basophils % 0.4 %; Eosinophils # 0.1 10^3/uL (0.0-0.8); Eosinophils % 0.4 %; Hematocrit 45.2 % (42.0-52.0); Hemoglobin 14.7 g/dL (11.7-16.6); Lymphocytes # 2.1 10^3/uL (0.8-4.8); Lymphocytes % 12.9 %; Mean Corpuscular HGB Conc 32.5 g/dL (30.0-36.0); Mean Corpuscular Hemoglobin 29.7 pg (28.0-34.0); Mean Corpuscular Volume 91.3 fl (80-94); Mean Platelet Volume 9.2 fL (7.4-10.4); Monocytes # 1.7 10^3/uL (0.2-0.9); Monocytes % 10.4 %; Neutrophils # 11.81 10^3/uL (1.8-7.7); Neutrophils % 72.9 %; Nucleated Red Blood Cells % 0 %; Platelet Count 405 10^3/cmm (130-400); Red Blood Count 4.95 10^6/uL (4.1-5.3); White Blood Count 16.2 10^3/uL (4.0-10.0)
[2021-03-27] MEDS: famotidine 20 mg/2 mL INJ IVP (05:37)
[2021-03-27 05:49] LABS: Anion Gap 16.4 (5-19); Blood Urea Nitrogen 31 mg/dL (6-20); Calcium 9.3 mg/dL (8.5-10.5); Carbon Dioxide 23 mmol/L (22-29); Chloride 99 mmol/L (98-107); Glomerular Filtration Rate 143.8 mL/min (90-130); Glucose 101 mg/dL (65-115); Osmolality Calculated 285 mOsm/kg (285-295); Potassium 4.4 mmol/L (3.5-5.1); Sodium 134 mmol/L (136-145)
--- NOTE | 2021-03-27 06:00 | XRR_ITS ---
PROCEDURE INFORMATION: Exam: XR Chest Exam date and time: 03/27/2021 6:00 AM Age: 50 years old Clinical indication: Cough and shortness of breath; Patient HX: F/u covid pneumonia. TECHNIQUE: Imaging protocol: XR of the chest. Views: 1 view. COMPARISON: CR XR chest 1V portable [id number] 03/25/2021 5:24 AM FINDINGS: Lungs: Bilateral interstitial and patchy alveolar pulmonary infiltrates are present and they have not significantly changed since previous study. Pleural spaces: Unremarkable. No pleural effusion. No pneumothorax. Heart/Mediastinum: Unremarkable. No cardiomegaly. Bones/joints: Unremarkable. XR/XR chest 1V portable [id number] IMPRESSION: Stable bilateral pulmonary infiltrates. Radiation Dose CTDIVOL = (mGy): DLP = (mGy-cm)
[2021-03-27 06:46] LABS: Glucose Point of Care 112 mg/dL (70-110)
[2021-03-27] MEDS: budesonide 0.5 mg/2 mL Neb INHALATION ×2 (08:05→20:21)
[2021-03-27] MEDS: enoxaparin 40 mg/0.4 mL Syringe SUBCUT (11:06)
[2021-03-27] MEDS: nystatin 100,000 unit/mL UDC 5 mL 100000 UNIT PO ×3 (11:09→22:08)
[2021-03-27] MEDS: zinc gluconate 50 mg Tablet PO (11:10)
[2021-03-27] MEDS: ascorbic acid 500 mg Tablet PO ×2 (11:10→18:57)
[2021-03-27] MEDS: benzonatate 100 mg Capsule PO ×3 (11:10→22:06)
[2021-03-27] MEDS: fluconazole 100 mg Tablet PO (11:10)
[2021-03-27] MEDS: fluoxetine 20 mg Capsule PO (11:11)
[2021-03-27 11:58] LABS: Glucose Point of Care 131 mg/dL (70-110)
--- NOTE | 2021-03-27 13:58 | PC.PT ---
requests cancel physical therapy order for this patient.
--- NOTE | 2021-03-27 15:30 | PC.NURSE ---
RT notified of o2 at 82%
[2021-03-27] MEDS: oxymetazoline 0.05% Nasal Spray 15 mL 2 SPRAY NOSTRIL-B (16:22)
[2021-03-27 17:08] LABS: Glucose Point of Care 117 mg/dL (70-110)
--- NOTE | 2021-03-27 19:40 | P.PN_ITS ---
Subjective Subjective: Interval history: Patient was seen and examined this morning no acute events overnight.Complaining of nasal congestion. saturating well on 3ls. Medications: Reviewed: Yes Vitals/I&O/Wt Last Vital Signs Temp 97.8 F 03/27/21 15:29 Pulse 95 03/27/21 15:29 Resp 18 03/27/21 15:29 BP 101/70 03/27/21 15:29 Pulse Ox 82 L 03/27/21 15:29 03/27/21 03/27/21 03/27/21 06:59 14:59 22:59 Intake Total 120 / 600 140 / 140 Output Total 325 / 325 Balance 120 / 600 -185 / -185 Physical Exam Const: COMMON NORMALS: patient oriented x3 HENMT: COMMON NORMALS: normocephalic and atraumatic HEAD & SCALP: normocephalic and atraumatic Resp: COMMON NORMALS: normal respiratory effort and clear to auscultation bilaterally AUSCULTATION: clear to auscultation bilaterally OTHER: Dimin ished air entry bilaterally Cardio: COMMON NORMALS: regular rate, regular rhythm, S1 normal heart sound present, S2 normal heart sound present, No gallops present (Cardio), No murmurs present (Cardio), No rub (Cardio) and Peripheral pulses 2+ throughout RATE: regular rate RHYTHM: regular rhythm HEART SOUNDS: S1 normal heart sound present and S2 normal heart sound present PERIPHERAL PULSES: Peripheral pulses 2+ throughout GI: COMMON NORMALS: Normal to inspection, nondistended, normoactive bowel sounds present, Soft to palpation, non-tender, No hepatosplenomegaly present and no masses AUSCULTATION: Yes normoactive bowel sounds PALPATION: Yes Soft to palpation and Yes No hepatosplenomegaly present RECTAL EXAM: Yes deferred Extremity: COMMON NORMALS: no clubbing, cyanosis or edema and no pedal edema Neuro: COMMON NORMALS: patient oriented x3 Urinary Catheter Management^: Hung: Cath Placed During This Visit: yes, but has since been removed by the nurse Reason for Continuing Indwelling Catheter: Decision to DC Catheter Urinary Catheter Date of Insertion: 03/18/21 Urinary Catheter Time of Insertion: 23:45 Date Urinary Catheter Removed: 03/24/21 Time Urinary Catheter Discontinued: 11:19 Data : 03/27/21 04:50 03/27/21 04:50 A&P Assessment and plan (1) ARDS (adult respiratory distress syndrome): Status: Acute (2) Pneumonia due to 2019-nCoV: Status: Acute (3) HTN (hypertension): Status: Acute (4) Elevated d-dimer: Status: Acute Additional A&P Information ARDS secondary to COVID-19 pneumonia: Severe disease. Oxygen supplementation keeping saturation over 86-88 %. Post Actemra on 03/17 Dexamethasone 6 mg daily to finish a 10-day course. Remdesivir to finish a 5-day course. Last dose 03/20 Vitamin C, zinc. DuoNebs every 4 hour, budesonide twice daily. Aggressive pulmonary toilet with incentive spirometry flutter valve. Proning to semiprone when possible. We will monitor inflammatory markers including ferritin, ESR, CRP, D-dimer, fibrinogen. Trending today. Inflammatory markers continue to improve. Ferritin trending down, CRP down to 17 from more than 300 on admission CTA negative for pulmonary embolism. D-dimer elevated but trending down again. Initially on full dose Lovenox 1 mg/kg body weight q 12 hourly. Has been switched to prophylactic anticoagulation Blood cultures so far negative, urine Legionella, bacterial antigen negative, MRSA negative. Pro-Leon elevated. Sputum culture consistent Frieda albicans . Fluconazole 100 mg daily for 7 days, nystatin swish and swallow. Finished course with IV antibiotics on March 22. Given hypoxia will try to keep patient as negative as possible. Echocardiogram shows an EF of 50% with normal diastolic function, mild to moderate MR with normal right ventricular pressures. Euvolemic today. Hold off on any IV fluids or diuresis for now. Monitor renal functions. Strict input output charting, daily weights. Appreciate Pulmonology recs. Hypertension: Goal of excellent less than 140/90 mmHg. Blood pressure stable for now. Hold off antihypertensives. Type 2 diabetes mellitus: New diagnosis. HbA1c 6.2. Start insulin sliding scale at low-dose protocol as patient will be on steroids as well. Will uptitrate insulin as per daily requirements. Anxiety: Most likely secondary to hypoxia, COVID-19. Continue Prozac at 20 mg daily. Mechanical soft carb consistent diet. Protonix OPD prophylaxis. DVT prophylaxis: On Lovenox Guarded prognosis. Discharge planning: Spoke with patient again regarding going home.He aggress to go home has good family support. 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
[2021-03-27] MEDS: cetirizine 10 mg Tablet PO (22:07)
[2021-03-27] MEDS: donepezil 5 MG Tablet 10 MG PO (22:07)
[2021-03-28] VITALS (10 sets, daily range): BP systolic 98–110; BP diastolic 59–70; PULSE 74–100; RESP 16–20; TEMP 36.6–36.9; O2SAT 86–96
[2021-03-28] MEDS: ipratropium-albuterol 3 mL Neb INHALATION ×3 (00:20→07:48)
[2021-03-28] MEDS: famotidine 20 mg/2 mL INJ IVP (05:43)
[2021-03-28 06:37] LABS: Glucose Point of Care 121 mg/dL (70-110)
[2021-03-28 06:59] LABS: Basophils # 0.1 10^3/uL (0.0-0.1); Basophils % 0.6 %; Eosinophils # 0.1 10^3/uL (0.0-0.8); Eosinophils % 0.7 %; Hematocrit 45.5 % (42.0-52.0); Hemoglobin 15.4 g/dL (11.7-16.6); Lymphocytes # 1.5 10^3/uL (0.8-4.8); Lymphocytes % 11.5 %; Mean Corpuscular HGB Conc 33.8 g/dL (30.0-36.0); Mean Corpuscular Hemoglobin 30.1 pg (28.0-34.0); Mean Corpuscular Volume 88.9 fl (80-94); Mean Platelet Volume 9.1 fL (7.4-10.4); Monocytes # 1.5 10^3/uL (0.2-0.9); Monocytes % 11.2 %; Neutrophils # 9.79 10^3/uL (1.8-7.7); Neutrophils % 73.7 %; Nucleated Red Blood Cells % 0 %; Platelet Count 405 10^3/cmm (130-400); Red Blood Count 5.12 10^6/uL (4.1-5.3); Red Cell Distribution Width 12.7 % (12.1-15.1); White Blood Count 13.3 10^3/uL (4.0-10.0)
[2021-03-28 07:26] LABS: Anion Gap 19.5 (5-19); Blood Urea Nitrogen 22 mg/dL (6-20); Calcium 9.5 mg/dL (8.5-10.5); Carbon Dioxide 17 mmol/L (22-29); Chloride 100 mmol/L (98-107); Glomerular Filtration Rate 177.5 mL/min (90-130); Glucose 113 mg/dL (65-115); Osmolality Calculated 278 mOsm/kg (285-295); Potassium 4.5 mmol/L (3.5-5.1); Sodium 132 mmol/L (136-145)
[2021-03-28] MEDS: budesonide 0.5 mg/2 mL Neb INHALATION (07:48)
--- NOTE | 2021-03-28 10:09 | P.DS_ITS ---
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 In the ER he was found to have saturation down to high 70s requiring high oxygen supplementation. Blood work in the ER concerning for white count 12.6, hemoglobin of 11.5, D-dimer 1.6, ABG showing a pH of 7.5, PCO2 of 28, PO2 of 51 on 60% high, sodium 134, potassium of 3.4, creatinine of 0.9, ferritin of 1499, CRP of 345 with chest x-ray as below. Hospital course: During this hospital stay patient was managed for acute hypoxic respiratory failure secondary to ARDS secondary to Covid pneumonia: He was kept on Covid protocol (inflammatory markers were trended, CTA chest was done was negative for PE, consistent with Covid pneumonia, 2D echo was done:EF of 50% with normal diastolic function, mild to moderate MR with normal right ventricular pressures. Blood cultures were negative, urine Legionella antigen bacterial antigen panel was negative, MRSA was negative, sputum culture: Frieda albicans ,patient was empirically kept on broad-spectrum antibiotic, Completed 7-day course of fluconazole. Patient completed 5-day course of remdesivir, completed 10-day course of dexamethasone, s/p Actemra 1 dose, aggressive pulmonary toilet, incentive spirometer flutter valve was instituted. Patient responded well to the above medical management, at the time of discharge he was requiring 4 L of oxygen via nasal cannula on exertion, and 2 L at rest. At the time of discharge, budesonide as well as albuterol inhaler has been given, as well as Tessalon Perles and Robitussin, he was also given cetirizine and Flonase as he was complaining of nasal congestion.Patient responded well to the above medical management and is being discharged in stable condition to home. Physical Exam Const: COMMON NORMALS: patient oriented x3 HENMT: COMMON NORMALS: normocephalic and atraumatic HEAD & SCALP: normocephalic and atraumatic Resp: COMMON NORMALS: normal respiratory effort and clear to auscultation bilaterally AUSCULTATION: clear to auscultation bilaterally OTHER: Diminished air entry bilaterally Cardio: COMMON NORMALS: regular rate, regular rhythm, S1 normal heart sound present, S2 normal heart sound present, No gallops present (Cardio), No murmurs present (Cardio), No rub (Cardio) and Peripheral pulses 2+ throughout RATE: regular rate RHYTHM: regular rhythm HEART SOUNDS: S1 normal heart sound present and S2 normal heart sound present PERIPHERAL PULSES: Peripheral pulses 2+ throughout GI: COMMON NORMALS: Normal to inspection, nondistended, normoactive bowel sounds present, Soft to palpation, non-tender, No hepatosplenomegaly present and no masses AUSCULTATION: Yes normoactive bowel sounds PALPATION: Yes Soft to palpation and Yes No hepatosplenomegaly present RECTAL EXAM: Yes deferred Extremity: COMMON NORMALS: no clubbing, cyanosis or edema and no pedal edema Neuro: COMMON NORMALS: patient oriented x3 Urinary Catheter Management^: Hung: Cath Placed During This Visit: yes, but has since been removed by the nurse Reason for Continuing Indwelling Catheter: Decision to DC Catheter Urinary Catheter Date of Insertion: 03/18/21 Urinary Catheter Time of Insertion: 23:45 Date Urinary Catheter Removed: 03/24/21 Time Urinary Catheter Discontinued: 11:19 Discharge Data Data Completed and Pending: Completed Studies During Hospitalization Category Date Time Status CT angio chest PE protcl [id number] Urge nt Cat Scan 03/15/21 18:25 Completed XR chest 1V deandra ble [id number] Q48H Exams 03/16/21 06:00 Completed XR chest 1V deandra ble [id number] Q48H Exams 03/18/21 06:00 Completed XR chest 1V deandra ble [id number] Q48H Exams 03/20/21 06:00 Completed XR chest 1V deandra ble [id number] Q48H Exams 03/23/21 06:00 Completed XR chest 1V deandra ble [id number] Q48H Exams 03/25/21 06:00 Completed XR chest 1V deandra ble [id number] Q48H Exams 03/27/21 06:00 Completed XR chest 1V deandra ble [id number] Routine Exams 03/17/21 03:00 Completed XR chest 1V deandra ble [id number] Stat Exams 03/15/21 17:09 Completed CV. echo complete * [id number] Routine Ultrasound 03/16/21 18:04 Completed Pending at discharge Category Date Time Status Basic Metabolic P moiz AM LABS Lab 03/29/21 04:00 Ordered Complete Blood Co unt w/Auto AM LABS Lab 03/29/21 04:00 Ordered Labs from last 24 hours 03/28/21 03/28/21 03/28/21 06:45 06:45 06:33 WBC 13.3 H RBC 5.12 Hgb 15.4 Hct 45.5 MCV 88.9 MCH 30.1 MCHC 33.8 RDW 12.7 Plt Count 405 H MPV 9.1 Neut % (Auto) 73.7 Lymph % (Auto) 11.5 [place] % (Auto) 11.2 Eos % (Auto) 0.7 Baso % (Auto) 0.6 Neut # (Auto) 9.79 H Lymph # (Auto) 1.5 [place] # (Auto) 1.5 H Eos # (Auto) 0.1 Baso # (Auto) 0.1 Nucleated RBC % (a uto) 0 Nucleated RBCs # 0.0 Sodium 132 L Potassium 4.5 Chloride 100 Carbon Dioxide 17 L Anion Gap 19.5 H BUN 22 H Creatinine 0.5 L GFR Calculation 177.5 H Glucose 113 POC Glucose 121 H Calculated Osmolal ity 278 L Calcium 9.5 03/27/21 03/27/21 17:04 11:32 WBC RBC Hgb Hct MCV MCH MCHC RDW Plt Count MPV Neut % (Auto) Lymph % (Auto) [place] % (Auto) Eos % (Auto) Baso % (Auto) Neut # (Auto) Lymph # (Auto) [place] # (Auto) Eos # (Auto) Baso # (Auto) Nucleated RBC % (a uto) Nucleated RBCs # Sodium Potassium Chloride Carbon Dioxide Anion Gap BUN Creatinine GFR Calculation Glucose POC Glucose 117 H 131 H Calculated Osmolal ity Calcium Vitals: Last Vital Signs Temp 97.9 F 03/28/21 08:00 Pulse 77 03/28/21 08:00 Resp 16 03/28/21 08:00 BP 101/65 03/28/21 08:00 Pulse Ox 86 L 03/28/21 10:03 Discharge Plan Discharge Patient Disposition: Home Condition: Stable Prescriptions: New cetirizine 10 mg Tablet 10 mg PO DAILY PRN (Reason: Allergic Symptoms) 7 Days Qty: 7 RF: 0 fluticasone propionate 50 mcg/actuation [place],Suspension 2 spray nasal BID 30 Days Qty: 2 RF: 0 albuterol sulfate 90 mcg/actuation HFA aerosol inhaler 1 inh inhalation Q4H PRN (Reason: shortness of breath or wheezing) Qty: 8.5 RF: 0 budesonide 90 mcg/actuation aerosol powdr breath activated 1 inh inhalation BID Qty: 1 RF: 1 Tessalon Perles 100 mg capsule 100 mg PO BID PRN (Reason: cough) Qty: 20 RF: 0 Robitussin Cough-Chest Foreign DM 10-200 mg capsule 1 tab-cap PO Q8H PRN (Reason: cough) Qty: 30 RF: 0 Continued hydroxyzine HCl 50 mg tablet 50 mg PO BID PRN (Reason: Anxiety) RF: 0 ibuprofen 200 mg Tablet 400 - 600 mg PO Q6H PRN (Reason: Pain) RF: 0 Tylenol PM Extra Strength 25-500 mg Tablet 2 tab PO BEDTIME PRN (Reason: Sleep) RF: 0 Held amlodipine 5 mg tablet 5 mg PO QAM RF: 0 Hold Instructions: Resume on 04/05/21. Discontinued azithromycin 250 mg tablet See Rx Instructions .ROUTE .COMPLEX RF: 0 Discharge Orders: Discharge Order (Routine); Ordered 03/28/21 Ordered By: Luis Alberto Osuna Other Ambulatory Orders: DME: Oxygen (Order) Location: None Selected Ordered By: Luis Alberto Osuna Referrals: Carlos Lewis [Referring] - 2 weeks (Please call Monday and schedule an appointment to see Dr. Lewis within the next two weeks. ) Discharge Diet: Regular Discharge Activity: Increase activity as tolerated Patient Instructions: Benzonatate (By mouth) (Tessalon Perles, Zonatuss), Albuterol (By breathing) (ProAir, AccuNeb, Proventil, Proventil..., Dextromethorphan (By mouth) (Children's Robitussin Cough Long..., Cetirizine (By mouth) (Children's ZyrTEC, Equate Children's Allergy..., Fluticasone (By breathing) (Arnuity Ellipta, Flovent Diskus,..., Budesonide (By breathing) (Flex de Pulmicort, Pulmicort Flexhaler,..., COVID-19 (Coronavirus Disease 2019) (DC), Opioid Safety Discharge Attestations Time Spent in Discharge Care*: less than 30 min Specific Discharge Activities: educating patient, educating and/or supporting family/caregiver, discussing with pcp/other providers, discussing with case loader operator/social workers/dc planners, documenting/other paperwork and evaluating patient/reviewing data Status at Discharge: Cognitive status at discharge: cognitively intact , Behavioral status at discharge: cooperative , Functional status at discharge: independent ambulation Overall status at discharge: patient is progressing back to baseline Quality Metrics Clinical Quality Measures During this hospital stay, did patient experience: None Coding Level of Care Code Acute [facility] note Diagnoses ARDS (adult respiratory distress syndrome) J80 Pneumonia due to 2019-nCoV U07.1; J12.82 HTN (hypertension) I10 Elevated d-dimer R79.89
[2021-03-28 12:08] LABS: Glucose Point of Care 126 mg/dL (70-110)
[2021-03-28] MEDS: fluoxetine 20 mg Capsule PO (12:26)
[2021-03-28] MEDS: ascorbic acid 500 mg Tablet PO (12:26)
[2021-03-28] MEDS: benzonatate 100 mg Capsule PO (12:26)
[2021-03-28] MEDS: cetirizine 10 mg Tablet PO (12:27)
[2021-03-28] MEDS: nystatin 100,000 unit/mL UDC 5 mL 100000 UNIT PO (12:28)
== END 2021-03-28 14:55 | disposition home or self-care (01) | DRG 177 ==
LOC: ER 18:25 → ICU 18:57 → MEDSURG 03-23 21:59
PROVIDERS: Student in an Organized Health Care Education/Training Program; Admitting Provider Student in an Organized Health Care Education/Training Program; Emergency Provider Emergency Medicine; Visit Provider Internal Medicine
DX: U07.1 COVID-19 (principal); J12.82 Pneumonia due to coronavirus disease 2019; J80 Acute respiratory distress syndrome; I10 Essential (primary) hypertension; Z87.891 Personal history of nicotine dependence; E11.9 Type 2 diabetes mellitus without complications; F41.0 Panic disorder [episodic paroxysmal anxiety]; F41.9 Anxiety disorder, unspecified; I34.0 Nonrheumatic mitral (valve) insufficiency
CPT/HCPCS: 36415; 36416; 36600; 51702; 71045; 71275; 80048; 80051; 80053; 80061; 80202; 81001; 82330; 82550; 82728; 82803; 82805; 82962; 83036; 83540; 83550; 83605; 83615; 83735; 83880; 84145; 84443; 84484; 85007; 85025; 85378; 85384; 85610; 85651; 85730; 86140; 86403; 87040; 87070; 87106; 87205; 87426; 87449; 87493; 87635; 87641; 87804; 93306; 94640; 96365; 96367; 96372; 96375; 99291; 99292; J0743; J1100; J1630; J1650; J1815; J1940; J2060; J2270; J2405; J3262; J3370; J3490; J7030; J7611; J7626; Q9967

== ENCOUNTER → 2022-06-07 09:50 | Outpatient (BNVA) | payer OTHER, SELFPAY | PROVIDERS: Visit Provider Nurse Practitioner | DX: R50.9 Fever, unspecified (principal); B34.9 Viral infection, unspecified | CPT/HCPCS: 87400 ==